=== PATIENT | female | born 1935 | race Caucasian/White ===

== ENCOUNTER 2017-06-10 16:58 | Observation (INO) | payer OTHER ==
[2017-06-10] VITALS (14 sets, daily range): BP systolic 96–225; BP diastolic 53–106; PULSE 64–96; RESP 16–18; TEMP 97.6–97.7; O2SAT 93–98
[~2017-06-10] VITALS: Ht 154.9 cm; Wt 62.3 kg
[~2017-06-10 16:58] MED LIST: LEVO25TA4 PO; NAPR250T PO; ORPH100T PO; SIMV20TA PO
[2017-06-10] MEDS ORDERED: LORazepam 2 MG/ML VIAL IV PUSH ONE ×2 (17:30)
[2017-06-10] MEDS ORDERED: ASPIRIN 325 MG TAB PO ONE ×2 (17:30)
--- NOTE | 2017-06-10 17:30 | PD ---
HPI Chief Complaint: Chest Pain Time Seen by Provider: 17:08 Travel History International Travel<30 days: No Contact w/Intl Traveler<30days: No History of Present Illness HPI 82yo F with HLD, anxiety, colon CA and hypothyroidism presents to the ED with c/ o tingling in bilateral hands that radiated up her arms and now with chest pain across her chest at about 3pm today. Said it is hard to describe the chest pain but it hurts when you press on it. Associated with some nausea. Denies any fever, cough, sob, vomiting, focal weakness. Denies any history of CVA or NM. Said she has had similar chest pain before but never saw a regulatory compliance coordinator or had a stress test. Denies cig smoking. PFSH Past Medical History Anxiety: Yes Cancer: Yes (COLON CANCER 1986) High Cholesterol: Yes Diminished Hearing: No Thyroid Disease: Yes Triglycerides - High: Yes Dilation and Curettage (D&C): Yes Past Surgical History Abdominal Surgery: Yes (COLON RESCETION) Appendectomy: Yes Tonsillectomy: Yes Social History Alcohol Use: Yes (2-3 [employer]ASS[employer] W[employer] AT [employer]) Tobacco Use: No Substance Use: No Allergies-Medications (Allergen,Severity, Reaction): Coded Allergies: No Known Allergies (Verified Allergy, Unknown, 06/10/17) Reported Meds & Prescriptions Reported Meds & Active Scripts Active Naproxen 250 Mg Tab 250 Mg PO BID Orphenadrine ER 12 HR (Orphenadrine Citrate) 100 Mg Tab 100 Mg PO Q12HR 10 Days Reported Levothyroxine (Levothyroxine Sodium) 25 Mcg Tab Unknown Dose PO DAILY Simvastatin 20 Mg Tab 20 Mg PO DAILY Review of Systems Except as stated in HPI: all other systems reviewed are Neg Physical Exam Narrative GENERAL: 82yo F in mild distress. SKIN: Focused skin assessment warm/dry. HEAD: Atraumatic. Normocephalic. EYES: Pupils equal and round. No scleral icterus. No injection or drainage. ENT: No nasal bleeding or discharge. Mucous membranes pink and moist. NECK: Trachea midline. No JVD. CARDIOVASCULAR: Regular rate and rhythm. No murmur appreciated. RESPIRATORY: No accessory muscle use. Clear to auscultation. Breath sounds equal bilaterally. GASTROINTESTINAL: Abdomen soft, non-tender, nondistended. MUSCULOSKELETAL: No obvious deformities. No clubbing. No cyanosis. No edema. NEUROLOGICAL: Awake and alert. No obvious cranial nerve deficits. Motor grossly within normal limits in all extremities. Normal speech. Sensation intact and equal in both arms and legs. PSYCHIATRIC: Anxious appearing. Data Data Last Documented VS Vital Signs Date Time Temp Pulse Resp B/P (MAP) Pulse Ox O2 Delivery O2 Flow Rate FiO2 06/10/17 18:46 79 18 206/106 (139) 94 Room Air 06/10/17 17:15 97.7 Orders Orders Basic Metabolic Panel (Bmp) (06/10/17 17:20) Complete Blood Count With Diff (06/10/17 17:20) Magnesium (Mg) (06/10/17 17:20) Prothrombin Time / Inr (Pt) (06/10/17 17:20) Act Partial Throm Time (Ptt) (06/10/17 17:20) Troponin I (06/10/17 17:20) Chest, Single Ap (06/10/17 17:20) Ecg Monitoring (06/10/17 17:20) Bilateral Bp Monitoring (06/10/17 17:20) Aspirin (Aspirin) (06/10/17 17:30) Ct Brain W/O Iv Contrast(Rout) (06/10/17 ) Lorazepam Inj (Ativan Inj) (06/10/17 17:30) Electrocardiogram (06/10/17 17:10) Nitroglycerin Sl (Nitrostat Sl) (06/10/17 18:45) Potassium Chloride (Kcl) (06/10/17 19:00) Admit Order (Ed Use Only) (06/10/17 18:51) Thyroid Stimulating Hormone (06/10/17 17:20) Labs Laboratory Tests Test 06/10/17 17:20 White Blood Count 8.8 TH/MM3 Red Blood Count 4.43 MIL/MM3 Hemoglobin 12.9 GM/DL Hematocrit 38.3 % Mean Corpuscular Volume 86.5 FL Mean Corpuscular Hemoglobin 29.2 PG Mean Corpuscular Hemoglobin Concent 33.7 % Red Cell Distribution Width 13.0 % Platelet Count 356 TH/MM3 Mean Platelet Volume 7.3 FL Neutrophils (%) (Auto) 64.0 % Lymphocytes (%) (Auto) 26.0 % Monocytes (%) (Auto) 6.3 % Eosinophils (%) (Auto) 2.7 % Basophils (%) (Auto) 1.0 % Neutrophils # (Auto) 5.6 TH/MM3 Lymphocytes # (Auto) 2.3 TH/MM3 Monocytes # (Auto) 0.6 TH/MM3 Eosinophils # (Auto) 0.2 TH/MM3 Basophils # (Auto) 0.1 TH/MM3 CBC Comment DIFF FINAL Differential Comment Prothrombin Time 10.0 SEC Prothromb Time International Ratio 0.9 RATIO Activated Partial Thromboplast Time 25.0 SEC Blood Urea Nitrogen 19 MG/DL Creatinine 0.88 MG/DL Random Glucose 125 MG/DL Calcium Level 8.3 MG/DL Magnesium Level 2.1 MG/DL Sodium Level 139 MEQ/L Potassium Level 3.3 MEQ/L Chloride Level 105 MEQ/L Carbon Dioxide Level 21.4 MEQ/L Anion Gap 13 MEQ/L Estimat Glomerular Filtration Rate 62 ML/MIN Troponin I 0.02 NG/ML Thyroid Stimulating Hormone 3rd Gen 2.350 uIU/ML MDM Medical Decision Making Medical Screen Exam Complete: Yes Emergency Medical Condition: Yes Interpretation(s) EKG: NSR 91bpm. ST depression II, III, aVF, V3-V6. LVH. Differential Diagnosis Anxiety vs. ACS vs. CVA Narrative Course 82yo F with bilateral upper extremity tingling and atypical chest pain today. Pt keeps saying it's numb but feels equal sensation on my exam. Said it is really more tingling. No perioral numbness. Pt appears very anxious so will give ativan. There are ST depressions that are concerning on EKG. Could be from LVH but no prior to compare. Labs reviewed, no leukocytosis. H/H normal. Mild hypokalemia at 3.3, replaced orally. Troponin negative. Creatinine normal. CXR showed cardiomegaly. No acute disease. CT brain negative. Pt reevaluated after aspirin and ativan. Said tingling has improved. Blood pressure is very elevated and pt has no history of elevated blood pressure. Pt still with chest pain when you press on it. Sublingual nitro ordered for chest pain and elevated blood pressure. Discussed with Dr. Alva and accepted to her service for chest pain. Informed by nurse that her blood pressure dropped to systolic 90s after 1 sublingual nitro. Will do CTA to r/o dissection. Sign out to Dr. Brown to follow up. Diagnosis Primary Impression: Chest pain Qualified Codes: R07.9 - Chest pain, unspecified Admitting Information Admitting Physician Requests: Observation Opal Valdovinos DO Jun 10, 2017 17:30
[2017-06-10 17:48] LABS: AUTOMATED NEUTROPHIL # 5.6 TH/MM3 (1.8-7.7); BASOPHIL # 0.1 TH/MM3 (0-0.2); EOSINOPHIL # 0.2 TH/MM3 (0-0.4); EOSINOPHIL % 2.7 % (0.0-4.0); HEMATOCRIT 38.3 % (35.0-46.0); HEMOGLOBIN 12.9 GM/DL (11.6-15.3); LYMPHOCYTE # 2.3 TH/MM3 (1.0-4.8); MEAN CELL VOLUME 86.5 FL (80.0-100.0); MEAN CORPUSCULAR HEMOGLOBIN 29.2 PG (27.0-34.0); MEAN CORPUSCULAR HGB CONC 33.7 % (32.0-36.0); MEAN PLATELET VOLUME 7.3 FL (7.0-11.0); MONO % 6.3 % (0.0-8.0); MONOCYTE # 0.6 TH/MM3 (0-0.9); PLATELET COUNT 356 TH/MM3 (150-450); RED BLOOD COUNT 4.43 MIL/MM3 (4.00-5.30); WHITE BLOOD COUNT 8.8 TH/MM3 (4.0-11.0)
[2017-06-10 17:50] LABS: BICARBONATE 21.4 MEQ/L (21.0-32.0); CALCIUM 8.3 MG/DL (8.5-10.1); MAGNESIUM 2.1 MG/DL (1.5-2.5)
[2017-06-10 17:51] LABS: INTERNATIONAL NORMALIZED RATIO 0.9 RATIO
[2017-06-10 17:54] LABS: CREATININE 0.88 MG/DL (0.50-1.00)
--- NOTE | 2017-06-10 17:58 | RADRPT ---
EXAM DATE/TIME: 06/10/2017 17:50 [facility] COMPARISON: No previous studies available for comparison. INDICATIONS : Numbness in arms. MEDICAL HISTORY : None. SURGICAL HISTORY : None. ENCOUNTER: Initial ACUITY: 1 day PAIN SCORE: 0/10 LOCATION: Bilateral chest FINDINGS: The cardiac silhouette is enlarged in transverse diameter. The lungs are free of acute parenchymal op acity. No effusions are identified. The aortic knob is prominent with tortuosity of the descending th oracic aorta. CONCLUSION: 1. Cardiomegaly. No acute pulmonary disease. Irvin Saba MD on June 10, 2017 at 17:56 Board Certified Radiologist. This report was verified electronically.
[2017-06-10 17:59] LABS: TROPONIN I 0.02 NG/ML (0.02-0.05)
--- NOTE | 2017-06-10 18:21 | RADRPT ---
EXAM DATE/TIME: 06/10/2017 18:07 [facility] COMPARISON: No previous studies available for comparison. INDICATIONS : Bilateral upper extremity tingling this afternoon. RADIATION DOSE: 61.24 CTDIvol (mGy) MEDICAL HISTORY : Carcinoma, colon. SURGICAL HISTORY : Tonsillectomy. Colon resection.Appendectomy. ENCOUNTER: Initial ACUITY: 1 day PAIN SCALE: 0/10 LOCATION: cranial TECHNIQUE: Multiple contiguous axial images were obtained of the head. Using automated exposure control and adj ustment of the mA and/or kV according to patient size, radiation dose was kept as low as reasonably a chievable to obtain optimal diagnostic quality images. DICOM format image data is available electro nically for review and comparison. FINDINGS: CEREBRUM: The ventricles are normal for age. No evidence of midline shift, mass lesion, hemorrhage or acute in farction. No extra-axial fluid collections are seen. POSTERIOR FOSSA: The cerebellum and brainstem are intact. The 4th ventricle is midline. The cerebellopontine angle i s unremarkable. EXTRACRANIAL: The visualized portion of the orbits is intact. SKULL: The calvaria is intact. No evidence of skull fracture. CONCLUSION: Negative noncontrast CT brain. Mario Mahmood MD on June 10, 2017 at 18:19 Board Certified Radiologist. This report was verified electronically.
[2017-06-10] MEDS: NITROGLYCERIN 0.4 MG SL 25 TABS/BTL SL SCH ×6 (18:50→18:55)
[2017-06-10] MEDS ORDERED: IOHEXOL 350 MG/ML 100 ML BTL (for Cath Lab) OTHER ONE ×2 (18:52)
[2017-06-10] MEDS ORDERED: POTASSIUM CHLORIDE 20 MEQ CONTROLLED RELEASE TAB PO ONE ×2 (19:00)
[2017-06-10] MEDS ORDERED: NITROGLYCERIN 0.4 MG SL 25 TABS/BTL SL PRN ×2 (19:00)
[2017-06-10] MEDS ORDERED: SODIUM CHLORIDE 0.9% FLUSH 10 ML FLUSH IV FLUSH PRN ×2 (19:00)
[2017-06-10] MEDS ORDERED: POTASSIUM CHLORIDE 10 MEQ CONTROLLED RELEASE TAB PO ONE ×2 (19:00)
[2017-06-10] MEDS ORDERED: IOHEXOL 350 MG/ML 10 ML VIAL (for RAD DIAG) IVCONTRAST ONE ×2 (20:12)
--- NOTE | 2017-06-10 20:31 | RADRPT ---
EXAM DATE/TIME: 06/10/2017 19:33 [facility] COMPARISON: CHEST SINGLE AP, June 10, 2017, 17:50. INDICATIONS : Chest pain. Evaluate for aortic dissection. IV CONTRAST: 100 cc Omnipaque 350 (iohexol) IV RADIATION DOSE: 16.05 CTDIvol (mGy) MEDICAL HISTORY : Cardiovascular disease. Carcinoma, colon. SURGICAL HISTORY : Colon resection. Appendectomy. ENCOUNTER: Initial ACUITY: 1 day PAIN SCALE: 2/10 LOCATION: chest TECHNIQUE: Volumetric scanning was performed using a multi-row detector CT scanner. The data was post processed with a variety of visualization algorithms including full volume maximum intensity projection, multi -planar sliding thin slab reformation, curved planar reformation, and surface rendering techniques. Using automated exposure control and adjustment of the mA and/or kV according to patient size, radiat ion dose was kept as low as reasonably achievable to obtain optimal diagnostic quality images. DICOM format image data is available electronically for review and comparison. FINDINGS: LUNGS: There is no consolidation or pneumothorax. No concerning pulmonary nodule is visualized. No pleural fluid is present. MEDIASTINUM: No abnormally enlarged lymph nodes by CT criteria. No axillary or hilar abnormalities are identified. There are multiple small periaortic lymph nodes which appear reactive. Coronary calcifications are p resent. ABDOMEN: There is a small hiatal hernia. Postoperative changes are noted in the right side of the colon with a nastomotic neftali. There are scattered diverticuli. The liver and spleen are free of focal defects. The gallbladder and pancreas demonstrate no abnormality. The adrenal glands are normal. The kidneys d emonstrate no evidence of solid renal mass or hydronephrosis. No free fluid or abdominal masses are i dentified. No para-aortic adenopathy is seen. PELVIS: No evidence of free fluid. No abnormally enlarged inguinal or retroperitoneal lymph nodes are present . The bladder is unremarkable. The uterus is prominent with a 4 cm mass along the left side of the ut erus. THORACIC AORTA: The thoracic aortic root is normal with normal branching of the great vessels. There is no evidence of aneurysm or dissection. After splenic changes noted with plaque and calcifications. ABDOMINAL AORTA: The aorta is normal in caliber without aneurysm or dissection. The renal arteries are patent bilater ally. The proximal celiac and superior mesenteric arteries are patent and normal in diameter. Diffus e atherosclerotic changes are noted with plaque and calcification. PELVIC VESSELS: The internal iliac and external iliac vessels are patent without aneurysm or stenosis. CONCLUSION: 1. No aortic dissection. 2. Atherosclerotic change with calcification and plaque. 3. Small hiatal hernia 4. Prominent uterus with left-sided mass measuring up to 4 cm. This is nonspecific. Carlos Patiño MD on June 10, 2017 at 20:24 Board Certified Radiologist. This report was verified electronically.
--- NOTE | 2017-06-10 21:05 | EKG ---
Date Performed: 06/10/2017 Time Performed: 17:10:03 PTAGE: 82 years EKG: Sinus rhythm LEFT VENTRICULAR HYPERTROPHY AND ST-T CHANGE ABNORMAL ECG PREVIOUS TRACING : 04/21/1996 14.09 Compared to the previous tracing ST-T changes present DOCTOR: Khoi Babb Interpretating Date/Time 06/10/2017 21:04:04
[2017-06-10] MEDS: ENALAPRIL MALEATE 5 MG TAB PO SCH ×2 (21:22)
[2017-06-10] MEDS: SODIUM CHLORIDE 0.9% FLUSH 10 ML FLUSH IV FLUSH SCH ×2 (21:23)
[2017-06-10] MEDS: CARVEDILOL 3.125 MG TAB PO SCH ×2 (21:23)
[2017-06-10 21:39] LABS: TROPONIN I 1.5 NG/ML (0.02-0.05)
[2017-06-10] MEDS ORDERED: NITROGLYCERIN 2% OINT 1 GM PACKET TOPICAL ONE ×2 (22:00)
[2017-06-10] MEDS ORDERED: HEPARIN SODIUM - IV 10,000 UNITS/10 ML VIAL IV PUSH ONE ×2 (22:00)
[2017-06-10] MEDS ORDERED: HEPARIN-D5W 25,000 U/250 ML 250 ML IV PRN ×2 (22:00)
[2017-06-10 22:18] LABS: CHOLESTEROL/ HDL RATIO 11.19 RATIO; HDL CHOLESTEROL 11.7 MG/DL (40.0-60.0)
[2017-06-10] MEDS ORDERED: NITROGLYCERIN-D5W 50 MG/250 ML 250 ML IV PRN ×2 (23:15)
[2017-06-11] VITALS (28 sets, daily range): BP systolic 103–168; BP diastolic 52–74; PULSE 62–92; RESP 16–20; TEMP 97.5–98.4; O2SAT 93–97
--- NOTE | 2017-06-11 00:56 | PD ---
Physical Exam Date Seen by Provider: Jun 11, 2017 Time Seen by Provider: 23:00 Narrative GENERAL: Well-developed well-nourished female in no acute distress no respiratory distress CARDIOVASCULAR: Regular rate and rhythm without murmurs, gallops, or rubs. RESPIRATORY: Breath sounds equal bilaterally. No accessory muscle use. MUSCULOSKELETAL: No cyanosis, or edema. Radial dorsalis pedis pulses 2+ to palpation Data Data Last Documented VS Vital Signs Date Time Temp Pulse Resp B/P (MAP) Pulse Ox O2 Delivery O2 Flow Rate FiO2 06/10/17 18:46 79 18 206/106 (139) 94 Room Air 06/10/17 17:15 97.7 Orders Orders Basic Metabolic Panel (Bmp) (06/10/17 17:20) Complete Blood Count With Diff (06/10/17 17:20) Magnesium (Mg) (06/10/17 17:20) Prothrombin Time / Inr (Pt) (06/10/17 17:20) Act Partial Throm Time (Ptt) (06/10/17 17:20) Troponin I (06/10/17 17:20) Chest, Single Ap (06/10/17 17:20) Ecg Monitoring (06/10/17 17:20) Bilateral Bp Monitoring (06/10/17 17:20) Aspirin (Aspirin) (06/10/17 17:30) Ct Brain W/O Iv Contrast(Rout) (06/10/17 ) Lorazepam Inj (Ativan Inj) (06/10/17 17:30) Electrocardiogram (06/10/17 17:10) Nitroglycerin Sl (Nitrostat Sl) (06/10/17 18:45) Potassium Chloride (Kcl) (06/10/17 19:00) Admit Order (Ed Use Only) (06/10/17 18:51) Thyroid Stimulating Hormone (06/10/17 17:20) Labs Laboratory Tests Test 06/10/17 17:20 White Blood Count 8.8 TH/MM3 Red Blood Count 4.43 MIL/MM3 Hemoglobin 12.9 GM/DL Hematocrit 38.3 % Mean Corpuscular Volume 86.5 FL Mean Corpuscular Hemoglobin 29.2 PG Mean Corpuscular Hemoglobin Concent 33.7 % Red Cell Distribution Width 13.0 % Platelet Count 356 TH/MM3 Mean Platelet Volume 7.3 FL Neutrophils (%) (Auto) 64.0 % Lymphocytes (%) (Auto) 26.0 % Monocytes (%) (Auto) 6.3 % Eosinophils (%) (Auto) 2.7 % Basophils (%) (Auto) 1.0 % Neutrophils # (Auto) 5.6 TH/MM3 Lymphocytes # (Auto) 2.3 TH/MM3 Monocytes # (Auto) 0.6 TH/MM3 Eosinophils # (Auto) 0.2 TH/MM3 Basophils # (Auto) 0.1 TH/MM3 CBC Comment DIFF FINAL Differential Comment Prothrombin Time 10.0 SEC Prothromb Time International Ratio 0.9 RATIO Activated Partial Thromboplast Time 25.0 SEC Blood Urea Nitrogen 19 MG/DL Creatinine 0.88 MG/DL Random Glucose 125 MG/DL Calcium Level 8.3 MG/DL Magnesium Level 2.1 MG/DL Sodium Level 139 MEQ/L Potassium Level 3.3 MEQ/L Chloride Level 105 MEQ/L Carbon Dioxide Level 21.4 MEQ/L Anion Gap 13 MEQ/L Estimat Glomerular Filtration Rate 62 ML/MIN Troponin I 0.02 NG/ML Thyroid Stimulating Hormone 3rd Gen 2.350 uIU/ML [facility] Medical Record Reviewed: Yes Supervised Visit with CURTIS: No Differential Diagnosis please refer to Dr Valdovinos's dictation Narrative Course Asked to see patient as #2 tropnini I elevated at 1.50; patient hypertensive notes discomfort 3/10 in intensity across chest deies prior reported complaint of bilaterla upper extremity tingling or bilateral axillary discomfort; patient has receive coreg and vasotec for BP management --admitting MD has been called with plan to start heparin and nitropaste --in view of persistent HTN and c/o 3/ 10 "discomfort" per patient recommend change to nitroglycerin infusion and call placed to cardiology; patient bed has been changed with plan to admit now to [facility] to [facility] or [facility]. Physician Communication Physician Communication discussed with Dr Rodas; discussed with Dr Burnett Diagnosis Primary Impression: Chest pain Qualified Codes: R07.9 - Chest pain, unspecified Additional Impressions: NSTEMI (non-ST elevated myocardial infarction) Uncontrolled hypertension Rupa Brown MD Jun 11, 2017 00:56
[2017-06-11 02:33] LABS: TROPONIN I 5.12 NG/ML (0.02-0.05)
[2017-06-11] MEDS ORDERED: HEPARIN SODIUM - IV 10,000 UNITS/10 ML VIAL IV PUSH PRN ×4 (04:00)
[2017-06-11 04:30] LABS: BICARBONATE 21.7 MEQ/L (21.0-32.0); CALCIUM 9.2 MG/DL (8.5-10.1); CREATININE 0.79 MG/DL (0.50-1.00)
--- NOTE | 2017-06-11 04:42 | HHI.HP ---
[facility] Primary Care Physician Otoniel Downey MD Admission Diagnosis Chest pain Diagnoses: (1) Chest pain Chief Complaint: Chest pain and bilateral hand paresthesias Travel History International Travel<30 Days: No Contact w/Intl Traveler <30 Da: No Traveled to Known Affected Are: No History of Present Illness Written by Daisy Ramirez, acting as scribe for Dr. Rodas on 06/11/17 at 04:42. The patient reports chest pain not worse with deep breath accompanied by bilateral axillary pain radiating pins and needle sensation down both arms since about 4 p.m. on 06/10/17. The patient states that she had chest discomfort that is reproducible when palpating chest; currently denies chest pain. Denies nausea/vomiting or shortness of breath. Denies any weakness in arms. The patient reports feeling better since admission, arms back to normal. Chest pain only with pressing on her chest. Review of Systems Except as stated in HPI: all other systems reviewed are Neg Past Family Social History Past Medical History Thyroid disease Hyperlipidemia Anxiety Past Surgical History Colon cancer s/p resection Appendectomy Tonsillectomy Reported Medications Reported Meds & Active Scripts Active Naproxen 250 Mg Tab 250 Mg PO BID Orphenadrine ER 12 HR (Orphenadrine Citrate) 100 Mg Tab 100 Mg PO Q12HR 10 Days Reported Levothyroxine (Levothyroxine Sodium) 25 Mcg Tab Unknown Dose PO DAILY Simvastatin 20 Mg Tab 20 Mg PO DAILY . Allergies: Coded Allergies: No Known Allergies (Verified Allergy, Unknown, 06/10/17) Active Ordered Medications Current Medications Aspirin (Aspirin) 325 mg ONCE ONCE PO Last administered on 06/10/17 17:39; Start 06/10/17 at 17:30; Stop 06/10/17 at 17:31; Status DC Lorazepam (Ativan Inj) 1 mg ONCE ONCE IV PUSH Last administered on 06/10/17 17:40; Start 06/10/17 at 17:30; Stop 06/10/17 at 17:31; Status DC Nitroglycerin (Nitrostat Sl) 0.4 mg Q5M SL Last administered on 06/10/17 18: 53; Start 06/10/17 at 18:45; Stop 06/10/17 at 18:56; Status DC Potassium Chloride (KCl) 20 meq ONCE ONCE PO Last administered on 06/10/17 18:53; Start 06/10/17 at 19:00; Stop 06/10/17 at 19:01; Status DC Sodium Chloride (NS Flush) 2 ml UNSCH PRN IV FLUSH FLUSH AFTER USING IV ACCESS ; Start 06/10/17 at 19:00 Sodium Chloride (NS Flush) 2 ml BID IV FLUSH Last administered on 06/10/17 21 :23; Start 06/10/17 at 21:00 Enalapril Maleate (Vasotec) 5 mg BID PO Last administered on 06/10/17 21:22; Start 06/10/17 at 21:00 Aspirin (Aspirin) 325 mg DAILY PO ; Start 06/12/17 at 09:00 Nitroglycerin (Nitrostat Sl) 0.4 mg Q5M PRN SL X 3 doses for chest pain; Start 06/10/17 at 19:00 Potassium Chloride (KCl) 30 meq ONCE ONCE PO ; Start 06/10/17 at 19:00; Stop 06/10/17 at 20:21; Status DC Iohexol (Omnipaque 350 Inj) 100 ml STK-MED ONCE IVCONTRAST Last administered on 06/10/17 20:12; Start 06/10/17 at 20:12; Stop 06/10/17 at 20:13; Status DC Carvedilol (Coreg) 3.125 mg Q12HR PO Last administered on 06/10/17 21:23; Start 06/10/17 at 21:15 Nitroglycerin (Nitroglycerin 2% Oint) 0.5 inch ONCE ONCE TOPICAL Last administered on 06/10/17 22:15; Start 06/10/17 at 22:00; Stop 06/10/17 at 22 :06; Status DC Heparin Sodium (Porcine) (Heparin Inj) 2,000 units ONCE ONCE IV PUSH Last administered on 06/10/17 22:15; Start 06/10/17 at 22:00; Stop 06/10/17 at 22 :04; Status DC Heparin Sodium (Porcine) (Heparin Inj) 5,000 units UNSCH PRN IV PUSH APTT LESS THAN 25; Start 06/11/17 at 04:00 Heparin Sodium (Porcine) (Heparin Inj) 2,500 units UNSCH PRN IV PUSH APTT 25 TO 39; Start 06/11/17 at 04:00 Heparin Sodium/ Dextrose 250 ml @ 7 mls/hr TITRATE PRN IV Coagulation Management Last administered on 06/10/17 22:16; Start 06/10/17 at 22:00 Pravastatin Sodium (Pravachol) 40 mg DAILY PO ; Start 06/11/17 at 09:00 Nitroglycerin/ Dextrose 250 ml @ 1.5 mls/hr TITRATE PRN IV Chest pain relief Last administered on 06/10/17 23:30; Start 06/10/17 at 23:15 . Family History mother and father with heart disease . Social History quit smoking 50 years ago 3 glasses of wine daily illicit drugs denies . Physical Exam Vital Signs Vital Signs Date Time Temp Pulse Resp B/P (MAP) Pulse Ox O2 Delivery O2 Flow Rate FiO2 06/11/17 04:00 82 06/11/17 03:00 84 06/11/17 03:00 97.9 84 16 103/55 (71) 93 06/11/17 02:00 71 06/11/17 01:30 72 06/11/17 01:30 97.5 72 16 156/65 (95) 96 06/11/17 00:37 69 16 139/60 (86) 96 Room Air 06/11/17 00:31 72 16 137/62 (87) 94 Room Air 06/11/17 00:24 70 16 131/66 (87) 96 Room Air 06/11/17 00:17 77 16 142/69 (93) 94 Room Air 06/11/17 00:12 84 16 154/67 (96) 95 Room Air 06/11/17 00:06 68 16 142/52 (82) 96 Room Air 06/11/17 00:01 77 16 143/67 (92) 96 Room Air 06/10/17 23:56 81 16 157/74 (101) 96 Room Air 06/10/17 23:52 73 16 187/78 (114) 94 Room Air 06/10/17 23:42 16 06/10/17 23:41 71 16 159/66 (97) 93 Room Air 06/10/17 23:37 71 16 150/74 (99) 95 Room Air 06/10/17 23:30 69 164/70 06/10/17 23:21 64 16 164/70 (101) 95 Room Air 06/10/17 22:54 78 16 179/76 (110) 96 Room Air 06/10/17 22:22 97.6 87 16 204/94 (130) 97 Room Air 06/10/17 21:50 72 18 191/83 (119) 97 Room Air 06/10/17 20:55 76 16 190/80 (116) 93 Room Air 06/10/17 19:47 87 18 161/82 (108) 94 Room Air 06/10/17 19:18 85 18 96/53 (67) 94 Room Air 06/10/17 18:59 18 06/10/17 18:46 79 18 206/106 (139) 94 Room Air 06/10/17 17:57 95 Room Air 06/10/17 17:45 213/88 (129) 206/94 (131) 06/10/17 17:15 97.7 96 16 225/105 (145) 98 Physical Exam GENERAL: This is a well-nourished, well-developed patient, in no apparent distress. SKIN: No rashes. Cool and dry. HEAD: Atraumatic. Normocephalic. EYES: No scleral icterus. No injection or drainage. ENT: Nose without bleeding, purulent drainage. NECK: Trachea midline. No JVD or lymphadenopathy. CARDIOVASCULAR: Regular rate and rhythm without murmurs, gallops, or rubs. Chest pain is reproducible when palpating central chest wall. RESPIRATORY: Clear to auscultation. Breath sounds equal bilaterally. No wheezes , rales, or rhonchi. GASTROINTESTINAL: Abdomen soft, non-tender, nondistended. No guarding. MUSCULOSKELETAL: Extremities without clubbing, cyanosis, or edema. No calf tenderness. NEUROLOGICAL: Awake and alert. Motor and sensory grossly within normal limits. Normal speech. . Laboratory Laboratory Tests Test 06/10/17 17:20 06/10/17 20:48 06/11/17 02:03 06/11/17 03:56 White Blood Count 8.8 Red Blood Count 4.43 Hemoglobin 12.9 Hematocrit 38.3 Mean Corpuscular Volume 86.5 Mean Corpuscular Hemoglobin 29.2 Mean Corpuscular Hemoglobin Concent 33.7 Red Cell Distribution Width 13.0 Platelet Count 356 Mean Platelet Volume 7.3 Neutrophils (%) (Auto) 64.0 Lymphocytes (%) (Auto) 26.0 Monocytes (%) (Auto) 6.3 Eosinophils (%) (Auto) 2.7 Basophils (%) (Auto) 1.0 Neutrophils # (Auto) 5.6 Lymphocytes # (Auto) 2.3 Monocytes # (Auto) 0.6 Eosinophils # (Auto) 0.2 Basophils # (Auto) 0.1 CBC Comment DIFF FINAL Differential Comment Prothrombin Time 10.0 Prothromb Time International Ratio 0.9 Activated Partial Thromboplast Time 25.0 38.2 Blood Urea Nitrogen 19 15 Creatinine 0.88 0.79 Random Glucose 125 110 Calcium Level 8.3 9.2 Magnesium Level 2.1 Sodium Level 139 138 Potassium Level 3.3 3.9 Chloride Level 105 106 Carbon Dioxide Level 21.4 21.7 Anion Gap 13 10 Estimat Glomerular Filtration Rate 62 70 Troponin I 0.02 1.50 5.12 Thyroid Stimulating Hormone 3rd Gen 2.350 Total Creatine Kinase 164 352 Triglycerides Level 239 Cholesterol Level 131 LDL Cholesterol 72 HDL Cholesterol 11.7 Cholesterol/HDL Ratio 11.19 Creatine Kinase MB 39.0 Creatine Kinase MB % 11.1 Result Diagram: 06/10/17171906/11/17 0356 Imaging Last Impressions Aorta CTA 06/10/17 1907 Signed Impressions: Service Date/Time: Saturday, June 10, 2017 19:33 - CONCLUSION: 1. No aortic dissection. 2. Atherosclerotic change with calcification and plaque. 3. Small hiatal hernia 4. Prominent uterus with left-sided mass measuring up to 4 cm. This is nonspecific. Carlos Patiño MD Chest X-Ray 06/10/170 Signed Impressions: Service Date/Time: Saturday, June 10, 2017 17:50 - CONCLUSION: 1. Cardiomegaly. No acute pulmonary disease. Irvin Saba MD Head CT 06/10/17 0000 Signed Impressions: Service Date/Time: Saturday, June 10, 2017 18:07 - CONCLUSION: Negative noncontrast CT brain. Mario Mahmood MD . Caprini VTE Risk Assessment Caprini VTE Risk Assessment: Mod/High Risk (score >= 2) Caprini Risk Assessment Model Point Value = 1 Point Value = 2 Point Value = 3 Point Value = 5 Age 41-60 Minor surgery BMI > 25 kg/m2 Swollen legs Varicose veins or History of unexplained or recurrent spontaneous Oral contraceptives or hormone replacement Sepsis (< 1 month) Serious lung disease, including pneumonia (< 1 month) Abnormal pulmonary function Acute myocardial infarction Congestive heart failure (< 1 month) History of inflammatory bowel disease Medical patient at bed rest Age 61-74 Arthroscopic surgery Major open surgery (> 45 min) Laparoscopic surgery (> 45 min) Malignancy Confined to bed (> 72 hours) Immobilizing plaster cast Central venous access Age >= 75 History of VTE Family history of VTE Factor V Leiden Prothrombin [id number] Lupus anticoagulant Anticardiolipin antibodies Elevated serum homocysteine Heparin-induced thrombocytopenia Other congenital or acquired thrombophilia Stroke (< 1 month) Elective arthroplasty Hip, pelvis, or leg fracture Acute spinal cord injury (< 1 month) Prophylaxis Regimen Total Risk Factor Score Risk Level Prophylaxis Regimen 0-1 Low Early ambulation 2 Moderate Order ONE of the following: *Sequential Compression Device (SCD) *Heparin 5000 units SQ BID 3-4 Higher Order ONE of the following medications: *Heparin 5000 units SQ TID *Enoxaparin/Lovenox 40 mg SQ daily (WT < 150 kg, CrCl > 30 mL/min) *Enoxaparin/Lovenox 30 mg SQ daily (WT < 150 kg, CrCl > 10-29 mL/min) *Enoxaparin/Lovenox 30 mg SQ BID (WT < 150 kg, CrCl > 30 mL/min) AND/OR *Sequential Compression Device (SCD) 5 or more Highest Order ONE of the following medications: *Heparin 5000 units SQ TID (Preferred with Epidurals) *Enoxaparin/Lovenox 40 mg SQ daily (WT < 150 kg, CrCl > 30 mL/min) *Enoxaparin/Lovenox 30 mg SQ daily (WT < 150 kg, CrCl > 10-29 mL/min) *Enoxaparin/Lovenox 30 mg SQ BID (WT < 150 kg, CrCl > 30 mL/min) AND *Sequential Compression Device (SCD) Assessment and Plan Problem List: (1) NSTEMI (non-ST elevated myocardial infarction) ICD Code: I21.4 - Non-ST elevation (NSTEMI) myocardial infarction Status: Acute (2) Chest pain ICD Code: R07.9 - Chest pain, unspecified Status: Acute Assessment and Plan 82 y/o female who presented to the ED after experiencing chest pain and bilateral hand paresthesias. NSTEMI Atypical chest pain - Heparin drip for anticoagulation - Nitroglycerin drip for chest pain - Troponin 1 repeat elevated at 1.50 and third level 5.12; fourth level pending at 0640 - Cardiology has been consulted - ER physician spoke with Dr. Burnett regarding patient per his documentation - Diet NPO - Closely monitor I&O qshift - continuous cardiac telemetry to monitor for cardiac arrhythmias - monitor vital signs q4h Prominent uterus with left sided mass measuring up to 4 cm seen on Aorta CTA as an incidental finding - patient will need follow up as an outpatient DVT prophylaxis - currently on a heparin drip Discussed Condition With ER physician, RN, and patient This note was transcribed by pavan Ramirez. I, Dr. Donal Rodas personally performed the history, physical exam, and medical decision making; and confirmed the accuracy of the information in the transcribed note. Authenticated by Dr. Donal Rodas on 06/11/17 at 07:18. Problem Qualifiers (1) Chest pain: Qualified Codes: R07.9 - Chest pain, unspecified Daisy Ramirez Jun 11, 2017 04:42 Donal Rodas MD Jun 11, 2017 07:18
[2017-06-11] MEDS: SODIUM CHLORIDE 0.9% FLUSH 10 ML FLUSH IV FLUSH SCH ×4 (09:00→21:00)
[2017-06-11] MEDS: ENALAPRIL MALEATE 5 MG TAB PO SCH ×4 (09:00→20:49)
[2017-06-11 09:33] LABS: TROPONIN I 10.2 NG/ML (0.02-0.05)
[2017-06-11] MEDS: CARVEDILOL 3.125 MG TAB PO SCH ×4 (09:38→20:49)
[2017-06-11] MEDS: PRAVASTATIN SOD 40 MG TAB PO SCH ×2 (09:38)
--- NOTE | 2017-06-11 09:44 | MB ---
cc: BHARATI SCOTT M.D. DATE OF CONSULTATION: 06/11/2017 REASON FOR CONSULTATION Abnormal cardiac enzymes. HISTORY OF PRESENT ILLNESS The patient is an 82-year-old white female with a history of hyperlipidemia, colon cancer, hypothyroidism, who was in her usual state of health up until lunchtime yesterday when she began to experience bilateral hand tingling. Shortly thereafter she developed a discomfort in her bilateral axillary regions possibly associated with chest "soreness," although she states the discomforts would worsen when she would press on these areas. There was no associated shortness of breath, nausea or diaphoresis. She believes the symptoms lasted at least 3 hours. The patient has noted occasional chest "soreness" in the past, although of much less intensity and duration. This morning she states she has no chest or arm discomfort. The patient also denies pleurisy, dizziness, syncope, near-syncope, palpitations, pedal edema, paroxysmal nocturnal dyspnea. For the most part she is very active. PAST MEDICAL HISTORY 1. Hyperlipidemia. 2. Colon cancer status post resection 1986. 3. Hypothyroidism. PAST SURGICAL HISTORY 1. Appendectomy. 2. Tonsillectomy. 3. Partial colon resection 1986. MEDICATIONS Her cardiac medications at home: Simvastatin 20 mg q.h.s. ALLERGIES No known drug allergies. FAMILY HISTORY Noncontributory. SOCIAL HISTORY The patient quit smoking 30 years ago. She drinks occasional alcohol. REVIEW OF SYSTEMS As in the history of present illness, otherwise negative or noncontributory. She also denies headache, visual changes, abdominal pain, melena, dyspepsia, bright red blood per rectum. PHYSICAL EXAMINATION VITAL SIGNS: On physical examination her blood pressure is 122/60 with a pulse of 70, respirations 18. GENERAL: In general she is a well-developed, well-nourished white female in no acute distress. HEENT/NECK: Jugular venous pressure is normal. Carotid pulses are 2+ bilaterally and without bruits. CHEST: Examination of the chest reveals clear lung jones. CARDIAC: On cardiac examination she has a regular rhythm and rate without S3, S4, or murmur. ABDOMEN: On abdominal examination she has a soft, nontender abdomen. Bowel sounds are present. There is no definite hepatosplenomegaly. EXTREMITIES: Examination of the extremities reveals no clubbing, cyanosis or edema. Peripheral pulses are normal throughout. LABORATORY Laboratory data includes normal CBC, BUN 15, creatinine 0.79, potassium 3.9, CK 352 with 11.1% MB fraction, troponin 5.12, total cholesterol 131, LDL 72, HDL 12, triglycerides 239. IMAGING Chest x-ray shows no acute disease. EKG EKG from 06/10/2017 at 8:45 p.m. shows normal sinus rhythm, inferior and lateral ST and T-wave abnormalities, consider ischemia. IMPRESSION [id number] myocardial infarction in this 82-year-old white female with a history of hyperlipidemia, colon cancer, hypothyroidism. At this time she is symptom-free. Cardiac enzymes are clearly consistent with acute myocardial infarction. She also has dynamic inferior and lateral ST and T-wave changes on EKGs. Because of her abnormal cardiac enzymes and the instability of her symptoms she has been recommended cardiac catheterization with possible percutaneous coronary intervention. The nature of these procedures and potential risks including but not limited to , myocardial infarction, stroke, arrhythmia, bleeding, infection, renal failure, have been outlined to the patient. She agrees to proceed. RECOMMENDATIONS 1. Continue the beta-dianna, aspirin, JAYCEE inhibitor, statin, heparin drip started here in the hospital. 2. Cardiac catheterization today. MD DAISY Lezama/YUE /9:27 AM /9:37 AM VESTA
[2017-06-11] MEDS ORDERED: SODIUM CHLOR 0.9% 1000 ML INJ 1,000 ML IV SCH ×4 (09:50→12:45)
[2017-06-11] MEDS ORDERED: diphenhydrAMINE HCL 50 MG CAP PO SCH ×2 (10:00)
[2017-06-11] MEDS ORDERED: DIAZEPAM 10 MG TAB PO SCH ×2 (10:00)
[2017-06-11] MEDS ORDERED: ASPIRIN 325 MG TAB PO ONE ×2 (10:45)
[2017-06-11] MEDS ORDERED: MIDAZOLAM HCL 2 MG/2 ML VIAL ONE ×4 (11:04→11:56)
[2017-06-11] MEDS ORDERED: VERAPAMIL HCL 5 MG/2 ML VIAL ONE ×2 (11:04)
[2017-06-11] MEDS ORDERED: HEPARIN-NS/PF INJ 500 ML ONE ×2 (11:04)
[2017-06-11] MEDS ORDERED: HEPARIN SODIUM - IV 10,000 UNITS/10 ML VIAL ONE ×2 (11:05)
[2017-06-11] MEDS ORDERED: MIDAZOLAM HCL 2 MG/2 ML VIAL IV ONE ×4 (11:32→11:59)
[2017-06-11] MEDS ORDERED: VERAPAMIL HCL 5 MG/2 ML VIAL OTHER ONE ×2 (11:36)
[2017-06-11] MEDS ORDERED: HEPARIN SODIUM - IV 2,000 UNITS/2 ML VIAL OTHER ONE ×2 (11:36)
[2017-06-11] MEDS ORDERED: NITROGLYCERIN 1000 MCG/5 ML VIAL OTHER ONE ×2 (11:36)
--- NOTE | 2017-06-11 12:08 | CATHPROC ---
noodls HIS Report Study Information Study Number Admission Scheduled Start Study Start [id number] Jun 10 2017 6:51PM 06/11/2017 Jun 11 2017 10:47AM [facility] Service Cardiac Catheterization Admit Source Facility Department Other [facility] - Director Business Travel Physician and Clinical Staff Initial Saran Silva Clay Artist Chloe Montague,MARLY Clay Artist Gunner Marmolejo,MARLY Recorder Hiwot Infante,RT(R) Scrub Mani Dickson,RT(R) Procedures Performed Procedure Location (Site) Vessel Name Coronary Angiograms LCA Left Coronary Coronary Angiograms RCA Right Coronary L Heart Cath LV Gram-hand inj. LV LV Ventricle Wire insertion Radial (right) Radial Art. Equipment Time Carpet Mechanic Description Size Mfg Part Number Used/Scraped TRANSDUCER, TRUWAVE [id number] 10:48 [employer] Max * Used W/STOCKCOCK *[id number] TIG 4.0 GUIDE CATHETER [id number] 11:29 [employer] FR 6 Used CONVEY *[id number] 534-623T *[id number] 534-642T *[id number] 10:48 [employer] PACK, CCL CUSTOM * Used *[id number] 10:48 [employer] PACER PEN, SKIN DUAL W/ RULER * Used *[id number] BAND, RADIAL COMPRESSION TR [id number] 11:48 [employer] (formerly [employer]) MEDICAL 24CM Used SHORT 24 *[id number] 10:48 [employer] SHEATH, FR6.5 PRELUDE 11CM FR 6.5 038ACT Used *[id number] 10:48 [employer] WIRE, 3MMJ .035 180CM 180CM Used *[id number] 10:48 [employer]AM[employer] MANIFOLD, 4 PORT * Used *[id number] 11:37 [employer] OMNIPAQUE, 350 MG, 150ML 150ML [id number] Used 10:48 [employer] OMNIPAQUE, 350 MG, 150ML 150ML [id number] Used [id number] 10:48 [employer] BL[employer]ET,WARM AIR CCL * Used *[id number] History: Current Medications Medication Dosage/Unit Route Frequency Last Date/Time Taken VASOTEC CARVEDILOL Statins (any) ASA HEPARIN History: Allergies Allergy Reaction No Known Allergies History: Risk Factors Family History of Hypertension Dyslipidemia Previous AR Previous Heart Failure Premature CAD No Yes Yes No No Prior Valve Prior PCI Prior CABG Surgery No No No Cerebrovascular Peripheral Artery Chronic Lung On Dialysis Diabetes Disease Disease Disease No No No No No History: Symptoms/Diagnosis Selection Items Chest pain History: CV Disease Selection Items AR History: Stress Tests Stress or Imaging Studies Performed No History: Other Current Smoker Method Quit Packs a Day Years Used Pack Years Yes Cigarettes 30 Years Ago 1 30 30 Labs Hgb (g/dl) Hct (%) WBC (l/cumm) Platelets (thousands) 11.60-17.00 35.00-51.00 4.00-11.00 150.00-450.00 12.9 38.3 8.8 356 Glucose (mg/dl) BUN (mg/dl) Creatinine (mg/dl) BUN:Creatinine (1:x) 74.00-106.00 7.00-18.00 0.50-1.30 10.00-20.00 110 15 0.8 18.8 Na (meq/l) K (meq/l) 136.00-145.00 3.50-5.10 138 3.9 INR (PTT:PT) 0.90-1.10 0.9 Troponin I (ng/ml) CPK (u/l) CPK-MB (ng/ML) 0.02-0.05 26.00-308.00 0.50-3.60 10.2 458 Not Drawn Medication Medication Total Dose (Bolus/Oral) Medication Total Dosage/Unit 1% XYLOCAINE 20 mL NTG (IC) 300 mcg RADIAL COCKTAIL 5 mL (Bolus) VERSED 3 mg Medications (Bolus/Oral) Medication Time Given Dosage/Unit Administered By Reason VERSED 06/11/2017 11:32:10 AM 1 mg Chloe oMntague 1 mg VERSED given in lab by Chloe Montague, RN in Left Wrist via Peripheral IV. Ordered by Ernie Bang. 1% XYLOCAINE 06/11/2017 11:32:27 AM 20 mL Saran Bang 20 mL 1% XYLOCAINE given in lab by Saran Bang in Right Radial via Subcutaneous. Ntg 200mcg Verapamil 2.5mg Heparin RADIAL COCKTAIL 06/11/2017 11:36:15 AM 5 mL (Bolus) Saran Bang 2500U 5 mL (Bolus) RADIAL COCKTAIL given in lab by Saran Bang via Radial. Using [Solution Name]. Reason: Ntg 200mcg Verapamil 2.5mg Heparin 2500U. NTG (IC) 06/11/2017 11:53:44 AM 200 mcg Saran Bang 200 mcg NTG (IC) given in lab by Saran Bang in Right Radial via Intra-arterial. FOR SHEATH REMOVAL VERSED 06/11/2017 11:57:30 AM 2 mg Chloe Montague 2 mg VERSED given in lab by Chloe Montague, RN via Peripheral IV. NTG (IC) 06/11/2017 11:57:37 AM 100 mcg Mani Dickson 100 mcg NTG (IC) given in lab by Mani Dickson, RT(R) via Intra-arterial. Medication (Drip) Medication Time Given Dosage/Unit Concentration/Unit Diluent (ml) Solution HEPARIN DRIP 06/11/2017 11:00:40 AM 800 units/hr 46982 units 250 NaCl .9 Patient arrived on 800 units/hr HEPARIN DRIP in Left Antecubital via Peripheral IV. Pump/Drip Flow = 8 ml/hr using NaCl .9 [place] [address] units in 250 ml. Ordered by Saran Bang. IV Solutions 06/11/2017 11:15:35 AM 0 mL (IV) NaCl .9 Patient arrived on IV Solutions in Left Wrist via Peripheral IV. Pump/Drip Flow = 100 ml/hr using NaC l .9. Ordered by Saran Bang. NITROGLYCERIN DRIP 06/11/2017 11:16:07 AM 20 mcg/min 50 mg 250 D5W Patient arrived on 20 mcg/min NITROGLYCERIN DRIP in Left Wrist via Peripheral IV. Pump/Drip Flow = 6 ml/hr using D5W with a concentration of 50 mg in 250 ml. Ordered by Saran Bang. Initial Case Assessment Cardiovascular HR Rhythm NIBP Chest Pain 76 reg 114/52 0 Edema Present Skin color Skin None Normal Warm Circulatory - Right Pulses Dorsalis Pedis Femoral Radial 1 3 2 Scale (0,1,2,3,4,d) Circulatory - Left Pulses Dorsalis Pedis Femoral Radial 1 Scale (0,1,2,3,4,d) Circulatory - Lower Extremities Color Lower Right Normal Neurological State Oriented to time-place- Alert Moves all extremities person Respiration - General Respiration Rate SpO2 (%) (B/min) 20 94 Final Case Assessment Cardiovascular HR Rhythm NIBP Chest Pain 77 REG 113/58 0 Edema Present Skin color Skin None Normal Warm Circulatory - Right Pulses Dorsalis Pedis Femoral Radial 1 2 2 Scale (0,1,2,3,4,d) Circulatory - Left Pulses Dorsalis Pedis Femoral Radial 1 Scale (0,1,2,3,4,d) Circulatory - Lower Extremities Color Lower Right Color Lower Left Normal Normal Neurological State Oriented to time-place- Alert Moves all extremities person Respiration - General Respiration Rate SpO2 (%) (B/min) 16 95 Chronological Log Time Study Chronological Log 11:00:00 Patient arrived via Bed. Patient arrived on 800 units/hr HEPARIN DRIP in Left Antecubital via Peripheral IV. Pump/Drip F low = 8 ml/hr using 11:00:40 NaCl .9 [place] [address] units in 250 ml. Ordered by Saran Bang. 11:00:48 A # 20 IV was noted in the Antecubital (left). Grade = 0 11:01:41 Patient Name, D.O.B, / Armband Verified By R.N. 11:02:45 Consent signed by the physician and the patient and verified by the Director Business Travel staff. 11:03:49 Pre-op and post- op instructions given; patient acknowledges understanding of instructions. 11:04:55 Verbal Stimulation=2 Physical Stimulation=2 Airway=2 Respiration=2 TOTAL=8. (0=absent, 1=li mited, 2=present) 11:05:19 heparin discontinued 11:05:50 Allens test performed on the right radial and ulnar artery. 11:06:20 Patient has been NPO for More than 6Hrs. 11:07:26 Skin Breakdown-none Vitals capture started with the following parameters, Patient=Adult, Interval=5 min, Initial Pr xximnt=752 mmHg, 11:09:24 Deflation Rate=5 mmHg, Cuff placed on left Arm 11:10:00 HR=69 bpm, PDNK=280/49 mmhg, SpO2=96.0 %, Resp=8 B/min, Pain=0, Melanie=10, Hutchinson=2 11:10:33 Reference ECG taken 11:11:44 Patient Warmer Placed on the Table. 11:14:57 HR=76 bpm, ILJK=831/52 mmhg, SpO2=94 %, Resp=18 B/min, Pain=0, Melanie=10, Hutchinson=2 11:15:21 A # 20 IV was noted in the Forearm (left). Grade = 0 Patient arrived on IV Solutions in Left Wrist via Peripheral IV. Pump/Drip Flow = 100 ml/hr usi ng NaCl .9. Ordered by 11:15:35 Saran Bang. Patient arrived on 20 mcg/min NITROGLYCERIN DRIP in Left Wrist via Peripheral IV. Pump/Drip Bernabe w = 6 ml/hr using 11:16:07 D5W with a concentration of 50 mg in 250 ml. Ordered by Saran Bang. 11:17:39 History and physical on the chart or being dictated. Assessment: Initial Case, HR=76 BPM, Rhythm=reg, ALSL=715/52 mmhg, Chest Pain=0, Edema=None, Co vanita=Normal, Skin = Warm Right Pulses: Neal Ped=1, Femoral=3, Radial=2 11:17:40 Left Pulses: Neal Ped=1 Lower Right Extremities: Color=Normal Neurological: State=Alert, Ox3, KANG Respiration: Resp=20 B/min, SpO2=94 % 11:18:27 Right Radial and groin(s) prepped with 2% chlorhexidine, and draped after a 3 min. waiting time. 11:20:00 HR=80 bpm, KLVB=674/54 mmhg, SpO2=94.0 %, Resp=11 B/min, Pain=0, Melanie=10, Hutchinson=2 11:22:17 Pressure channel 1 zeroed. 11:23:06 MD paged 11:25:03 HR=75 bpm, KZAZ=779/49 mmhg, SpO2=95 %, Resp=13 B/min, Pain=0, Melanie=10, Hutchinson=2 11:28:54 MD arrived. 11:30:00 HR=73 bpm, GGDM=500/57 mmhg, SpO2=94.0 %, Resp=23 B/min, Pain=0, Melanie=10, Hutchinson=2 Time Out. Correct patient, correct procedure, correct physician, power injector not loaded with contrast with surgical 11:31:28 team present. Time Out Concurred by MD and individual staff in procedure. 11:32:10 1 mg VERSED given in lab by Chloe Montague RN in Left Wrist via Peripheral IV. Ordered by Saran Bang. 11:32:25 Case Start 11:32:27 20 mL 1% XYLOCAINE given in lab by Saran Bang in Right Radial via Subcutaneous. 11:35:01 HR=69 bpm, VOMD=166/49 mmhg, SpO2=95.0 %, Resp=19 B/min, Pain=0, Melanie=10, Hutchinson=2 11:35:44 Access site was Radial Artery. RT 11:35:55 A wire was inserted via Radial (right). 11:36:06 A SHEATH, FR6.5 PRELUDE 11CM FR 6.5 was advanced into the Radial (right) using the Percutan eous technique. 5 mL (Bolus) RADIAL COCKTAIL given in lab by Saran Bang via Radial. Using [Solution Name]. Re ason: Ntg 200mcg 11:36:15 Verapamil 2.5mg Heparin 2500U. A TIG 4.0 GUIDE CATHETER CONVEY FR 6 was advanced over a wire. OMNIPAQUE, 350 MG, 150ML 150ML w as used 11:36:36 for injections. Recorded Pressure: Ao, HR=75, Condition=Condition 1 11:38:22 (Aorta) Ao 101/49/71 11:38:43 The LCA was injected and visualized at various angles. OMNIPAQUE, 350 MG, 150ML 150ML used . 11:40:00 HR=75 bpm, DASS=955/45 mmhg, SpO2=92.0 %, Resp=20 B/min, Pain=0, Melanie=10, Hutchinson=2 After removing the current catheter a JR 5.0 INFINITI CATHETER FR 6 was advanced over a WIRE, 3 MMJ .035 180CM 11:41:01 180CM. 11:43:06 The RCA was injected and visualized at various angles. OMNIPAQUE, 350 MG, 150ML 150ML used . After removing the current catheter a MPA-2 INFINITI CATHETER FR 6 was advanced over a WIRE, 3M MJ .035 180CM 11:43:42 180CM. 11:44:57 HR=73 bpm, FCVQ=553/58 mmhg, SpO2=95.0 %, Resp=10 B/min, Pain=0, Melanie=10, Hutchinson=2 Recorded Pressure: LV, HR=84, Condition=Condition 1 11:44:58 (Left Ventricle) LV 127/10/22 11:45:23 The LV was manually injected with 10 cc's and visualized. OMNIPAQUE, 350 MG, 150ML 150ML us ed. Recorded Pressure: LV, Ao, HR=79, Condition=Condition 1 11:45:28 (Left Ventricle) LV 129/9/20, (Aorta) Ao 132/60/89 11:45:55 Catheter was removed 11:47:17 Case End Assessment: Final Case, HR=77 BPM, Rhythm=REG, NMNJ=616/58 mmhg, Chest Pain=0, Edema=None, Col or=Normal, Skin = Warm Right Pulses: Neal Ped=1, Femoral=2, Radial=2 Left Pulses: Neal Ped=1 11:47:20 Lower Right Extremities: Color=Normal Lower Left Extremities: Color=Normal Neurological: State=Alert, Ox3, KANG Respiration: Resp=16 B/min, SpO2=95 % 11:47:59 Catheter(s) removed without difficulty Radial Compression Device Used. 15 mLs of air placed in BAND, RADIAL COMPRESSION TR SHORT 24 2 4CM. Affected 11:48:03 hand 94 % O2 saturation. 11:48:17 Sterile dressing applied to site 11:48:18 No case complications noted. 11:48:18 Cine recording checked. 11:48:20 Bedside Report will be given. 11:48:23 Contrast Scanned 11:48:26 A Left Heart Cath was performed. 11:49:45 Patient moved to stretcher 11:50:00 HR=76 bpm, RFVW=165/58 mmhg, SpO2=94.0 %, Resp=19 B/min, Pain=0, Melanie=10, Hutchinson=2 11:51:42 NITRO DISCONTINUED PER PHYSICIAN 11:53:44 200 mcg NTG (IC) given in lab by Saran Bang in Right Radial via Intra-arterial. FOR ROSS TH REMOVAL 11:55:01 HR=73 bpm, FMCM=719/68 mmhg, SpO2=95 %, Resp=16 B/min, Pain=0, Melanie=10, Hutchinson=2 11:57:30 2 mg VERSED given in lab by Chloe Montague, RN via Peripheral IV. 11:57:37 100 mcg NTG (IC) given in lab by Mani Dickson, RT(R) via Intra-arterial. 12:00:02 HR=77 bpm, BIIT=048/65 mmhg, SpO2=92.0 %, Resp=16 B/min, Pain=0, Melanie=10, Hutchinson=2 End Study - Contrast Media Used In Study Contrast Total Opened (mL) Total Used (mL) Total Wasted (mL) Omnipaque 55 55 0 End Study - Maximum Contrast Load Max Contrast Load (mL) 389.5 End Study - Radiation Exposure Fluoro Time (minutes) 3.2 End Study - Sheaths Sheaths Pulled By Sheath Hold Time (min) Mani Dickson End Study - Patient Disposition Complications Transferred To No Critical Care Bed
--- NOTE | 2017-06-11 12:08 | CATHPROC ---
Five9 HIS Report Study Information Study Number Admission Scheduled Start Study Start [id number] Jun 10 2017 6:51PM 06/11/2017 Jun 11 2017 10:47AM [place] [facility] Catheterization Admit Source Facility Department Other [facility] - Technical Support Engineer Physician and Clinical Staff Initial Saran Silva Resident Engineer Chloe Montague,MARLY Resident Engineer Gunner Marmolejo,MARLY Recorder Hiwot Infante,RT(R) Scrub Mani Dickson,RT(R) Procedures Performed Procedure Location (Site) Vessel Name Coronary Angiograms LCA Left Coronary Coronary Angiograms RCA Right Coronary L Heart Cath LV Gram-hand inj. LV LV Ventricle Wire insertion Radial (right) Radial Art. Equipment Time Licensed Prosthetist Description Size Mfg Part Number Used/Scraped TRANSDUCER, TRUWAVE [id number] 10:48 [employer] * Used W/STOCKCOCK *[id number] TIG 4.0 GUIDE CATHETER [id number] 11:29 [employer] FR 6 Used CONVEY *[id number] 534-623T *[id number] 534-642T *[id number] 10:48 [employer] PACK, CCL CUSTOM * Used *[id number] 10:48 [employer] PACER PEN, SKIN DUAL W/ RULER * Used *[id number] BAND, RADIAL COMPRESSION TR [id number] 11:48 [employer]ICAL 24CM Used SHORT 24 *[id number] 10:48 [employer] SHEATH, FR6.5 PRELUDE 11CM FR 6.5 038ACT Used *[id number] 10:48 [employer] WIRE, 3MMJ .035 180CM 180CM Used *[id number] 10:48 [employer], 4 PORT * Used *[id number] 11:37 [employer] OMNIPAQUE, 350 MG, 150ML 150ML [id number] Used 10:48 [employer] OMNIPAQUE, 350 MG, 150ML 150ML [id number] Used [id number] 10:48 [employer] BLANKET,WARM AIR CCL * Used *[id number] History: Current Medications Medication Dosage/Unit Route Frequency Last Date/Time Taken VASOTEC CARVEDILOL Statins (any) ASA HEPARIN History: Allergies Allergy Reaction No Known Allergies History: Risk Factors Family History of Hypertension Dyslipidemia Previous [place] Previous Heart Failure Premature CAD No Yes Yes No No Prior Valve Prior PCI Prior CABG Surgery No No No Cerebrovascular Peripheral Artery Chronic Lung On Dialysis Diabetes Disease Disease Disease No No No No No History: Symptoms/Diagnosis Selection Items Chest pain History: CV Disease Selection Items [place] History: Stress Tests Stress or Imaging Studies Performed No History: Other Current Smoker Method Quit Packs a Day Years Used Pack Years Yes Cigarettes 30 Years Ago 1 30 30 Labs Hgb (g/dl) Hct (%) WBC (l/cumm) Platelets (thousands) 11.60-17.00 35.00-51.00 4.00-11.00 150.00-450.00 12.9 38.3 8.8 356 Glucose (mg/dl) BUN (mg/dl) Creatinine (mg/dl) BUN:Creatinine (1:x) 74.00-106.00 7.00-18.00 0.50-1.30 10.00-20.00 110 15 0.8 18.8 Na (meq/l) K (meq/l) 136.00-145.00 3.50-5.10 138 3.9 INR (PTT:PT) 0.90-1.10 0.9 Troponin I (ng/ml) CPK (u/l) CPK-MB (ng/ML) 0.02-0.05 26.00-308.00 0.50-3.60 10.2 458 Not Drawn Medication Medication Total Dose (Bolus/Oral) Medication Total Dosage/Unit 1% XYLOCAINE 20 mL NTG (IC) 300 mcg RADIAL COCKTAIL 5 mL (Bolus) VERSED 3 mg Medications (Bolus/Oral) Medication Time Given Dosage/Unit Administered By Reason VERSED 06/11/2017 11:32:10 AM 1 mg Chloe Montague 1 mg VERSED given in lab by Chloe Montague, RN in Left Wrist via Peripheral IV. Ordered by Ernie Bnag. 1% XYLOCAINE 06/11/2017 11:32:27 AM 20 mL Saran Bang 20 mL 1% XYLOCAINE given in lab by Saran Bang in Right Radial via Subcutaneous. Ntg 200mcg Verapamil 2.5mg Heparin RADIAL COCKTAIL 06/11/2017 11:36:15 AM 5 mL (Bolus) Saran Bang 2500U 5 mL (Bolus) RADIAL COCKTAIL given in lab by Saran Bang via Radial. Using [Solution Name]. Reason: Ntg 200mcg Verapamil 2.5mg Heparin 2500U. NTG (IC) 06/11/2017 11:53:44 AM 200 mcg Saran Bang 200 mcg NTG (IC) given in lab by Saran Bang in Right Radial via Intra-arterial. FOR SHEATH REMOVAL VERSED 06/11/2017 11:57:30 AM 2 mg Chloe Montague 2 mg VERSED given in lab by Chloe Montague, RN via Peripheral IV. NTG (IC) 06/11/2017 11:57:37 AM 100 mcg Mani Dickson 100 mcg NTG (IC) given in lab by Mani Dickson, RT(R) via Intra-arterial. Medication (Drip) Medication Time Given Dosage/Unit Concentration/Unit Diluent (ml) Solution HEPARIN DRIP 06/11/2017 11:00:40 AM 800 units/hr 07092 units 250 NaCl .9 Patient arrived on 800 units/hr HEPARIN DRIP in Left Antecubital via Peripheral IV. Pump/Drip Flow = 8 ml/hr using NaCl .9 [place] [address] units in 250 ml. Ordered by Saran Bang. IV Solutions 06/11/2017 11:15:35 AM 0 mL (IV) NaCl .9 Patient arrived on IV Solutions in Left Wrist via Peripheral IV. Pump/Drip Flow = 100 ml/hr using NaC l .9. Ordered by Saran Bang. NITROGLYCERIN DRIP 06/11/2017 11:16:07 AM 20 mcg/min 50 mg 250 D5W Patient arrived on 20 mcg/min NITROGLYCERIN DRIP in Left Wrist via Peripheral IV. Pump/Drip Flow = 6 ml/hr using D5W with a concentration of 50 mg in 250 ml. Ordered by Saran Bang. Initial Case Assessment Cardiovascular HR Rhythm NIBP Chest Pain 76 reg 114/52 0 Edema Present Skin color Skin None Normal Warm Circulatory - Right Pulses Dorsalis Pedis Femoral Radial 1 3 2 Scale (0,1,2,3,4,d) Circulatory - Left Pulses Dorsalis Pedis Femoral Radial 1 Scale (0,1,2,3,4,d) Circulatory - Lower Extremities Color Lower Right Normal Neurological State Oriented to time-place- Alert Moves all extremities person Respiration - General Respiration Rate SpO2 (%) (B/min) 20 94 Final Case Assessment Cardiovascular HR Rhythm NIBP Chest Pain 77 REG 113/58 0 Edema Present Skin color Skin None Normal Warm Circulatory - Right Pulses Dorsalis Pedis Femoral Radial 1 2 2 Scale (0,1,2,3,4,d) Circulatory - Left Pulses Dorsalis Pedis Femoral Radial 1 Scale (0,1,2,3,4,d) Circulatory - Lower Extremities Color Lower Right Color Lower Left Normal Normal Neurological State Oriented to time-place- Alert Moves all extremities person Respiration - General Respiration Rate SpO2 (%) (B/min) 16 95 Chronological Log Time Study Chronological Log 11:00:00 Patient arrived via Bed. Patient arrived on 800 units/hr HEPARIN DRIP in Left Antecubital via Peripheral IV. Pump/Drip F low = 8 ml/hr using 11:00:40 NaCl .9 [place] [address] units in 250 ml. Ordered by Saran Bang. 11:00:48 A # 20 IV was noted in the Antecubital (left). Grade = 0 11:01:41 Patient Name, D.O.B, / Armband Verified By R.N. 11:02:45 Consent signed by the physician and the patient and verified by the Technical Support Engineer staff. 11:03:49 Pre-op and post- op instructions given; patient acknowledges understanding of instructions. 11:04:55 Verbal Stimulation=2 Physical Stimulation=2 Airway=2 Respiration=2 TOTAL=8. (0=absent, 1=li mited, 2=present) 11:05:19 heparin discontinued 11:05:50 Allens test performed on the right radial and ulnar artery. 11:06:20 Patient has been NPO for More than 6Hrs. 11:07:26 Skin Breakdown-none Vitals capture started with the following parameters, Patient=Adult, Interval=5 min, Initial Pr ugtmlz=717 mmHg, 11:09:24 Deflation Rate=5 mmHg, Cuff placed on left Arm 11:10:00 HR=69 bpm, CEEU=050/49 mmhg, SpO2=96.0 %, Resp=8 B/min, Pain=0, Melanie=10, Hutchinson=2 11:10:33 Reference ECG taken 11:11:44 Patient Warmer Placed on the Table. 11:14:57 HR=76 bpm, JHUR=399/52 mmhg, SpO2=94 %, Resp=18 B/min, Pain=0, Melanie=10, Hutchinson=2 11:15:21 A # 20 IV was noted in the Forearm (left). Grade = 0 Patient arrived on IV Solutions in Left Wrist via Peripheral IV. Pump/Drip Flow = 100 ml/hr usi ng NaCl .9. Ordered by 11:15:35 Saran Bang. Patient arrived on 20 mcg/min NITROGLYCERIN DRIP in Left Wrist via Peripheral IV. Pump/Drip Bernabe w = 6 ml/hr using 11:16:07 D5W with a concentration of 50 mg in 250 ml. Ordered by Saran Bang. 11:17:39 History and physical on the chart or being dictated. Assessment: Initial Case, HR=76 BPM, Rhythm=reg, GFVI=695/52 mmhg, Chest Pain=0, Edema=None, Co vanita=Normal, Skin = Warm Right Pulses: Neal Ped=1, Femoral=3, Radial=2 11:17:40 Left Pulses: Neal Ped=1 Lower Right Extremities: Color=Normal Neurological: State=Alert, Ox3, KANG Respiration: Resp=20 B/min, SpO2=94 % 11:18:27 Right Radial and groin(s) prepped with 2% chlorhexidine, and draped after a 3 min. waiting time. 11:20:00 HR=80 bpm, PQQZ=625/54 mmhg, SpO2=94.0 %, Resp=11 B/min, Pain=0, Melanie=10, Hutchinson=2 11:22:17 Pressure channel 1 zeroed. 11:23:06 MD paged 11:25:03 HR=75 bpm, WXFP=890/49 mmhg, SpO2=95 %, Resp=13 B/min, Pain=0, Melanie=10, Hutchinson=2 11:28:54 MD arrived. 11:30:00 HR=73 bpm, LPLO=569/57 mmhg, SpO2=94.0 %, Resp=23 B/min, Pain=0, Melanie=10, Hutchinson=2 Time Out. Correct patient, correct procedure, correct physician, power injector not loaded with contrast with surgical 11:31:28 team present. Time Out Concurred by MD and individual staff in procedure. 11:32:10 1 mg VERSED given in lab by Chloe Montague RN in Left Wrist via Peripheral IV. Ordered by Saran Bang. 11:32:25 Case Start 11:32:27 20 mL 1% XYLOCAINE given in lab by Saran Bang in Right Radial via Subcutaneous. 11:35:01 HR=69 bpm, RPFT=809/49 mmhg, SpO2=95.0 %, Resp=19 B/min, Pain=0, Melanie=10, Hutchinson=2 11:35:44 Access site was Radial Artery. RT 11:35:55 A wire was inserted via Radial (right). 11:36:06 A SHEATH, FR6.5 PRELUDE 11CM FR 6.5 was advanced into the Radial (right) using the Percutan eous technique. 5 mL (Bolus) RADIAL COCKTAIL given in lab by Saran Bang via Radial. Using [Solution Name]. Re ason: Ntg 200mcg 11:36:15 Verapamil 2.5mg Heparin 2500U. A TIG 4.0 GUIDE CATHETER CONVEY FR 6 was advanced over a wire. OMNIPAQUE, 350 MG, 150ML 150ML w as used 11:36:36 for injections. Recorded Pressure: Ao, HR=75, Condition=Condition 1 11:38:22 (Aorta) Ao 101/49/71 11:38:43 The LCA was injected and visualized at various angles. OMNIPAQUE, 350 MG, 150ML 150ML used . 11:40:00 HR=75 bpm, KIYG=506/45 mmhg, SpO2=92.0 %, Resp=20 B/min, Pain=0, Melanie=10, Hutchinson=2 After removing the current catheter a JR 5.0 INFINITI CATHETER FR 6 was advanced over a WIRE, 3 MMJ .035 180CM 11:41:01 180CM. 11:43:06 The RCA was injected and visualized at various angles. OMNIPAQUE, 350 MG, 150ML 150ML used . After removing the current catheter a MPA-2 INFINITI CATHETER FR 6 was advanced over a WIRE, 3M MJ .035 180CM 11:43:42 180CM. 11:44:57 HR=73 bpm, YFVW=250/58 mmhg, SpO2=95.0 %, Resp=10 B/min, Pain=0, Melanie=10, Hutchinson=2 Recorded Pressure: LV, HR=84, Condition=Condition 1 11:44:58 (Left Ventricle) LV 127/10/22 11:45:23 The LV was manually injected with 10 cc's and visualized. OMNIPAQUE, 350 MG, 150ML 150ML us ed. Recorded Pressure: LV, Ao, HR=79, Condition=Condition 1 11:45:28 (Left Ventricle) LV 129/9/20, (Aorta) Ao 132/60/89 11:45:55 Catheter was removed 11:47:17 Case End Assessment: Final Case, HR=77 BPM, Rhythm=REG, MWLQ=683/58 mmhg, Chest Pain=0, Edema=None, Col or=Normal, Skin = Warm Right Pulses: Neal Ped=1, Femoral=2, Radial=2 Left Pulses: Neal Ped=1 11:47:20 Lower Right Extremities: Color=Normal Lower Left Extremities: Color=Normal Neurological: State=Alert, Ox3, KANG Respiration: Resp=16 B/min, SpO2=95 % 11:47:59 Catheter(s) removed without difficulty Radial Compression Device Used. 15 mLs of air placed in BAND, RADIAL COMPRESSION TR SHORT 24 2 4CM. Affected 11:48:03 hand 94 % O2 saturation. 11:48:17 Sterile dressing applied to site 11:48:18 No case complications noted. 11:48:18 Cine recording checked. 11:48:20 Bedside Report will be given. 11:48:23 Contrast Scanned 11:48:26 A Left Heart Cath was performed. 11:49:45 Patient moved to stretcher 11:50:00 HR=76 bpm, WHGA=670/58 mmhg, SpO2=94.0 %, Resp=19 B/min, Pain=0, Melanie=10, Hutchinson=2 11:51:42 NITRO DISCONTINUED PER PHYSICIAN 11:53:44 200 mcg NTG (IC) given in lab by Saran Bang in Right Radial via Intra-arterial. FOR ROSS TH REMOVAL 11:55:01 HR=73 bpm, TUKF=720/68 mmhg, SpO2=95 %, Resp=16 B/min, Pain=0, Melanie=10, Hutchinson=2 11:57:30 2 mg VERSED given in lab by Chloe Montgaue, RN via Peripheral IV. 11:57:37 100 mcg NTG (IC) given in lab by Mani Dickson, RT(R) via Intra-arterial. 12:00:02 HR=77 bpm, QEZK=856/65 mmhg, SpO2=92.0 %, Resp=16 B/min, Pain=0, Melanie=10, Hutchinson=2 End Study - Contrast Media Used In Study Contrast Total Opened (mL) Total Used (mL) Total Wasted (mL) Omnipaque 55 55 0 End Study - Maximum Contrast Load Max Contrast Load (mL) 389.5 End Study - Radiation Exposure Fluoro Time (minutes) 3.2 End Study - Sheaths Sheaths Pulled By Sheath Hold Time (min) Mani Dickson End Study - Patient Disposition Complications Transferred To No Critical Care Bed
--- NOTE | 2017-06-11 12:08 | CATHPROC ---
cartmi HIS Report Study Information Study Number Admission Scheduled Start Study Start [id number] Jun 10 2017 6:51PM 06/11/2017 Jun 11 2017 10:47AM [place] [facility] Cardiac Catheterization Admit Source Facility Department Other [facility] - Agile Project Manager Physician and Clinical Staff Initial Saran Silva Address Change Clerk Chloe Montague,MARLY Address Change Clerk Gunner Marmolejo,MARLY Recorder Hiwot Infante,RT(R) Scrub Mani Dickson,RT(R) Procedures Performed Procedure Location (Site) Vessel Name Coronary Angiograms LCA Left Coronary Coronary Angiograms RCA Right Coronary L Heart Cath LV Gram-hand inj. LV LV Ventricle Wire insertion Radial (right) Radial Art. Equipment Time Cyber Incident Handler Description Size Mfg Part Number Used/Scraped TRANSDUCER, TRUWAVE [id number] 10:48 [employer] * Used W/STOCKCOCK *[id number] TIG 4.0 GUIDE CATHETER [id number] 11:29 [employer] FR 6 Used CONVEY *[id number] *[id number] *[id number] 10:48 [employer] INDUSTRIES PACK, CCL CUSTOM * Used *[id number] 10:48 [employer] PACER PEN, SKIN DUAL W/ RULER * Used *[id number] BAND, RADIAL COMPRESSION TR [id number] 11:48 [employer] MEDICAL 24CM Used SHORT 24 *[id number] 10:48 [employer] SHEATH, FR6.5 PRELUDE 11CM FR 6.5 038ACT Used *[id number] 10:48 [employer] WIRE, 3MMJ .035 180CM 180CM Used *[id number] 10:48 [employer] MANIFOLD, 4 PORT * Used *[id number] 11:37 [employer] OMNIPAQUE, 350 MG, 150ML 150ML [id number] Used 10:48 [employer] OMNIPAQUE, 350 MG, 150ML 150ML [id number] Used [id number] 10:48 [employer] BLANKET,WARM AIR CCL * Used *[id number] History: Current Medications Medication Dosage/Unit Route Frequency Last Date/Time Taken VASOTEC CARVEDILOL Statins (any) ASA HEPARIN History: Allergies Allergy Reaction No Known Allergies History: Risk Factors Family History of Hypertension Dyslipidemia Previous NC Previous Heart Failure Premature CAD No Yes Yes No No Prior Valve Prior PCI Prior CABG Surgery No No No Cerebrovascular Peripheral Artery Chronic Lung On Dialysis Diabetes Disease Disease Disease No No No No No History: Symptoms/Diagnosis Selection Items Chest pain History: CV Disease Selection Items NC History: Stress Tests Stress or Imaging Studies Performed No History: Other Current Smoker Method Quit Packs a Day Years Used Pack Years Yes Cigarettes 30 Years Ago 1 30 30 Labs Hgb (g/dl) Hct (%) WBC (l/cumm) Platelets (thousands) 11.60-17.00 35.00-51.00 4.00-11.00 150.00-450.00 12.9 38.3 8.8 356 Glucose (mg/dl) BUN (mg/dl) Creatinine (mg/dl) BUN:Creatinine (1:x) 74.00-106.00 7.00-18.00 0.50-1.30 10.00-20.00 110 15 0.8 18.8 Na (meq/l) K (meq/l) 136.00-145.00 3.50-5.10 138 3.9 INR (PTT:PT) 0.90-1.10 0.9 Troponin I (ng/ml) CPK (u/l) CPK-MB (ng/ML) 0.02-0.05 26.00-308.00 0.50-3.60 10.2 458 Not Drawn Medication Medication Total Dose (Bolus/Oral) Medication Total Dosage/Unit 1% XYLOCAINE 20 mL NTG (IC) 300 mcg RADIAL COCKTAIL 5 mL (Bolus) VERSED 3 mg Medications (Bolus/Oral) Medication Time Given Dosage/Unit Administered By Reason VERSED 06/11/2017 11:32:10 AM 1 mg Chloe Montague 1 mg VERSED given in lab by Chloe Montague, RN in Left Wrist via Peripheral IV. Ordered by Ernie Bang. 1% XYLOCAINE 06/11/2017 11:32:27 AM 20 mL Saran Bang 20 mL 1% XYLOCAINE given in lab by Saran Bang in Right Radial via Subcutaneous. Ntg 200mcg Verapamil 2.5mg Heparin RADIAL COCKTAIL 06/11/2017 11:36:15 AM 5 mL (Bolus) Saran Bang 2500U 5 mL (Bolus) RADIAL COCKTAIL given in lab by Saran Bang via Radial. Using [Solution Name]. Reason: Ntg 200mcg Verapamil 2.5mg Heparin 2500U. NTG (IC) 06/11/2017 11:53:44 AM 200 mcg Saran Bang 200 mcg NTG (IC) given in lab by Saran Bang in Right Radial via Intra-arterial. FOR SHEATH REMOVAL VERSED 06/11/2017 11:57:30 AM 2 mg Chloe Montague 2 mg VERSED given in lab by Chloe Montague, RN via Peripheral IV. NTG (IC) 06/11/2017 11:57:37 AM 100 mcg Mani Dickson 100 mcg NTG (IC) given in lab by Mani Dickson, RT(R) via Intra-arterial. Medication (Drip) Medication Time Given Dosage/Unit Concentration/Unit Diluent (ml) Solution HEPARIN DRIP 06/11/2017 11:00:40 AM 800 units/hr 12694 units 250 NaCl .9 Patient arrived on 800 units/hr HEPARIN DRIP in Left Antecubital via Peripheral IV. Pump/Drip Flow = 8 ml/hr using NaCl .9 [place] [address] units in 250 ml. Ordered by Saran Bang. IV Solutions 06/11/2017 11:15:35 AM 0 mL (IV) NaCl .9 Patient arrived on IV Solutions in Left Wrist via Peripheral IV. Pump/Drip Flow = 100 ml/hr using NaC l .9. Ordered by Saran Bang. NITROGLYCERIN DRIP 06/11/2017 11:16:07 AM 20 mcg/min 50 mg 250 D5W Patient arrived on 20 mcg/min NITROGLYCERIN DRIP in Left Wrist via Peripheral IV. Pump/Drip Flow = 6 ml/hr using D5W with a concentration of 50 mg in 250 ml. Ordered by Saran Bang. Initial Case Assessment Cardiovascular HR Rhythm NIBP Chest Pain 76 reg 114/52 0 Edema Present Skin color Skin None Normal Warm Circulatory - Right Pulses Dorsalis Pedis Femoral Radial 1 3 2 Scale (0,1,2,3,4,d) Circulatory - Left Pulses Dorsalis Pedis Femoral Radial 1 Scale (0,1,2,3,4,d) Circulatory - Lower Extremities Color Lower Right Normal Neurological State Oriented to time-place- Alert Moves all extremities person Respiration - General Respiration Rate SpO2 (%) (B/min) 20 94 Final Case Assessment Cardiovascular HR Rhythm NIBP Chest Pain 77 REG 113/58 0 Edema Present Skin color Skin None Normal Warm Circulatory - Right Pulses Dorsalis Pedis Femoral Radial 1 2 2 Scale (0,1,2,3,4,d) Circulatory - Left Pulses Dorsalis Pedis Femoral Radial 1 Scale (0,1,2,3,4,d) Circulatory - Lower Extremities Color Lower Right Color Lower Left Normal Normal Neurological State Oriented to time-place- Alert Moves all extremities person Respiration - General Respiration Rate SpO2 (%) (B/min) 16 95 Chronological Log Time Study Chronological Log 11:00:00 Patient arrived via Bed. Patient arrived on 800 units/hr HEPARIN DRIP in Left Antecubital via Peripheral IV. Pump/Drip F low = 8 ml/hr using 11:00:40 NaCl .9 [place] [address] units in 250 ml. Ordered by Saran Bang. 11:00:48 A # 20 IV was noted in the Antecubital (left). Grade = 0 11:01:41 Patient Name, D.O.B, / Armband Verified By R.N. 11:02:45 Consent signed by the physician and the patient and verified by the Agile Project Manager staff. 11:03:49 Pre-op and post- op instructions given; patient acknowledges understanding of instructions. 11:04:55 Verbal Stimulation=2 Physical Stimulation=2 Airway=2 Respiration=2 TOTAL=8. (0=absent, 1=li mited, 2=present) 11:05:19 heparin discontinued 11:05:50 Allens test performed on the right radial and ulnar artery. 11:06:20 Patient has been NPO for More than 6Hrs. 11:07:26 Skin Breakdown-none Vitals capture started with the following parameters, Patient=Adult, Interval=5 min, Initial Pr yzgwkr=144 mmHg, 11:09:24 Deflation Rate=5 mmHg, Cuff placed on left Arm 11:10:00 HR=69 bpm, LHHF=145/49 mmhg, SpO2=96.0 %, Resp=8 B/min, Pain=0, Melanie=10, Hutchinson=2 11:10:33 Reference ECG taken 11:11:44 Patient Warmer Placed on the Table. 11:14:57 HR=76 bpm, ZUAK=226/52 mmhg, SpO2=94 %, Resp=18 B/min, Pain=0, Melanie=10, Hutchinson=2 11:15:21 A # 20 IV was noted in the Forearm (left). Grade = 0 Patient arrived on IV Solutions in Left Wrist via Peripheral IV. Pump/Drip Flow = 100 ml/hr usi ng NaCl .9. Ordered by 11:15:35 Saran Bang. Patient arrived on 20 mcg/min NITROGLYCERIN DRIP in Left Wrist via Peripheral IV. Pump/Drip Bernabe w = 6 ml/hr using 11:16:07 D5W with a concentration of 50 mg in 250 ml. Ordered by Saran Bang. 11:17:39 History and physical on the chart or being dictated. Assessment: Initial Case, HR=76 BPM, Rhythm=reg, YZZV=747/52 mmhg, Chest Pain=0, Edema=None, Co vanita=Normal, Skin = Warm Right Pulses: Neal Ped=1, Femoral=3, Radial=2 11:17:40 Left Pulses: Neal Ped=1 Lower Right Extremities: Color=Normal Neurological: State=Alert, Ox3, KANG Respiration: Resp=20 B/min, SpO2=94 % 11:18:27 Right Radial and groin(s) prepped with 2% chlorhexidine, and draped after a 3 min. waiting time. 11:20:00 HR=80 bpm, PZAJ=307/54 mmhg, SpO2=94.0 %, Resp=11 B/min, Pain=0, Melanie=10, Hutchinson=2 11:22:17 Pressure channel 1 zeroed. 11:23:06 MD paged 11:25:03 HR=75 bpm, HCHY=232/49 mmhg, SpO2=95 %, Resp=13 B/min, Pain=0, Melanie=10, Hutchinson=2 11:28:54 MD arrived. 11:30:00 HR=73 bpm, JSBM=344/57 mmhg, SpO2=94.0 %, Resp=23 B/min, Pain=0, Melanie=10, Hutchinson=2 Time Out. Correct patient, correct procedure, correct physician, power injector not loaded with contrast with surgical 11:31:28 team present. Time Out Concurred by MD and individual staff in procedure. 11:32:10 1 mg VERSED given in lab by Chloe Montague RN in Left Wrist via Peripheral IV. Ordered by Saran Bang. 11:32:25 Case Start 11:32:27 20 mL 1% XYLOCAINE given in lab by Saran Bang in Right Radial via Subcutaneous. 11:35:01 HR=69 bpm, YYAO=205/49 mmhg, SpO2=95.0 %, Resp=19 B/min, Pain=0, Melanie=10, Hutchinson=2 11:35:44 Access site was Radial Artery. RT 11:35:55 A wire was inserted via Radial (right). 11:36:06 A SHEATH, FR6.5 PRELUDE 11CM FR 6.5 was advanced into the Radial (right) using the Percutan eous technique. 5 mL (Bolus) RADIAL COCKTAIL given in lab by Saran Bang via Radial. Using [Solution Name]. Re ason: Ntg 200mcg 11:36:15 Verapamil 2.5mg Heparin 2500U. A TIG 4.0 GUIDE CATHETER CONVEY FR 6 was advanced over a wire. OMNIPAQUE, 350 MG, 150ML 150ML w as used 11:36:36 for injections. Recorded Pressure: Ao, HR=75, Condition=Condition 1 11:38:22 (Aorta) Ao 101/49/71 11:38:43 The LCA was injected and visualized at various angles. OMNIPAQUE, 350 MG, 150ML 150ML used . 11:40:00 HR=75 bpm, FBEG=788/45 mmhg, SpO2=92.0 %, Resp=20 B/min, Pain=0, Melanie=10, Hutchinson=2 After removing the current catheter a JR 5.0 INFINITI CATHETER FR 6 was advanced over a WIRE, 3 MMJ .035 180CM 11:41:01 180CM. 11:43:06 The RCA was injected and visualized at various angles. OMNIPAQUE, 350 MG, 150ML 150ML used . After removing the current catheter a MPA-2 INFINITI CATHETER FR 6 was advanced over a WIRE, 3M MJ .035 180CM 11:43:42 180CM. 11:44:57 HR=73 bpm, VGHX=048/58 mmhg, SpO2=95.0 %, Resp=10 B/min, Pain=0, Melanie=10, Hutchinson=2 Recorded Pressure: LV, HR=84, Condition=Condition 1 11:44:58 (Left Ventricle) LV 127/10/22 11:45:23 The LV was manually injected with 10 cc's and visualized. OMNIPAQUE, 350 MG, 150ML 150ML us ed. Recorded Pressure: LV, Ao, HR=79, Condition=Condition 1 11:45:28 (Left Ventricle) LV 129/9/20, (Aorta) Ao 132/60/89 11:45:55 Catheter was removed 11:47:17 Case End Assessment: Final Case, HR=77 BPM, Rhythm=REG, BWXR=748/58 mmhg, Chest Pain=0, Edema=None, Col or=Normal, Skin = Warm Right Pulses: Neal Ped=1, Femoral=2, Radial=2 Left Pulses: Neal Ped=1 11:47:20 Lower Right Extremities: Color=Normal Lower Left Extremities: Color=Normal Neurological: State=Alert, Ox3, KANG Respiration: Resp=16 B/min, SpO2=95 % 11:47:59 Catheter(s) removed without difficulty Radial Compression Device Used. 15 mLs of air placed in BAND, RADIAL COMPRESSION TR SHORT 24 2 4CM. Affected 11:48:03 hand 94 % O2 saturation. 11:48:17 Sterile dressing applied to site 11:48:18 No case complications noted. 11:48:18 Cine recording checked. 11:48:20 Bedside Report will be given. 11:48:23 Contrast Scanned 11:48:26 A Left Heart Cath was performed. 11:49:45 Patient moved to stretcher 11:50:00 HR=76 bpm, LRAD=655/58 mmhg, SpO2=94.0 %, Resp=19 B/min, Pain=0, Melanie=10, Hutchinson=2 11:51:42 NITRO DISCONTINUED PER PHYSICIAN 11:53:44 200 mcg NTG (IC) given in lab by Saran Bang in Right Radial via Intra-arterial. FOR ROSS TH REMOVAL 11:55:01 HR=73 bpm, WKHJ=946/68 mmhg, SpO2=95 %, Resp=16 B/min, Pain=0, Melanie=10, Hutchinson=2 11:57:30 2 mg VERSED given in lab by Chloe Montague, RN via Peripheral IV. 11:57:37 100 mcg NTG (IC) given in lab by Mani Dickson, RT(R) via Intra-arterial. 12:00:02 HR=77 bpm, MGSS=542/65 mmhg, SpO2=92.0 %, Resp=16 B/min, Pain=0, Melanie=10, Hutchinson=2 End Study - Contrast Media Used In Study Contrast Total Opened (mL) Total Used (mL) Total Wasted (mL) Omnipaque 55 55 0 End Study - Maximum Contrast Load Max Contrast Load (mL) 389.5 End Study - Radiation Exposure Fluoro Time (minutes) 3.2 End Study - Sheaths Sheaths Pulled By Sheath Hold Time (min) Mani Dickson End Study - Patient Disposition Complications Transferred To No Critical Care Bed
--- NOTE | 2017-06-11 12:14 | MA ---
cc: BHARATI SCOTT M.D. DATE: 06/11/2017 PROCEDURE PERFORMED Left heart catheterization, selective coronary angiography, left ventriculography. PROCEDURE The patient was brought to the cardiac catheterization laboratory in a fasting state after having signed informed consent. The right radial region was prepped and draped as per policy and anesthetized with 1% lidocaine. Arterial access was obtained via the right radial artery and a 6-Lithuanian sheath placed. Coronary arteriography was performed using a tiger catheter. Left ventriculography was done using a multipurpose catheter. There were no apparent immediate complications. A radial artery compression band was applied to the arteriotomy site at the end of the case, achieving good hemostasis. HEMODYNAMIC DATA Left ventricle 130 with an end-diastolic pressure of 9. Aorta 132/60 with a mean of 89. There was no significant transvalvular aortic gradient on pullback of the pigtail catheter. CORONARY ARTERIOGRAPHY The left main has minimal luminal irregularities. The left anterior descending gives rise to a small caliber diagonal which is totally occluded distally. The proximal LAD has 40% stenosis right after the takeoff of this diagonal. The mid to distal LAD appears to be angiographically normal. The left circumflex is a medium-sized vessel giving rise to medium-sized obtuse marginal. There are minimal luminal irregularities in the left circumflex and obtuse marginal. The right coronary artery is a medium-sized dominant vessel which is diffusely diseased. There is up to 30% proximal stenosis, 10% mid disease and 10-15% dist disease. The posterior descending artery is quite small in caliber and free of disease. LEFT VENTRICULOGRAPHY Contrast injection of the left ventricle reveals a small area of anterolateral akinesis. Ejection fraction is estimated at 65%. CONCLUSION 1. Totally occluded but very small caliber diagonal, the patient's infarct-related vessel, otherwise overall mild disease. 2. Normal left ventricular function with estimated ejection fraction of 65%. MD DAISY Lezama/TLL /11:58 AM /12:04 PM VESTA
[2017-06-11] MEDS ORDERED: NITROGLYCERIN INJ 5 ML ONE ×2 (12:31)
[2017-06-11] MEDS ORDERED: MISC INFORMATION XX ONE ×2 (12:45)
--- NOTE | 2017-06-11 15:21 | EKG ---
Date Performed: 06/11/2017 Time Performed: 06:46:58 PTAGE: 82 years EKG: Sinus rhythm with borderline 1st degree A-V block Poor R wave progression - probable normal variant Nonspecific S T-T changes Abnormal ECG PREVIOUS TRACING : 06/10/2017 20.45 Compared to prior tracing no significant change DOCTOR: Khoi Babb Interpretating Date/Time 06/11/2017 15:20:33
--- NOTE | 2017-06-11 15:30 | EKG ---
Date Performed: 06/11/2017 Time Performed: 01:38:56 PTAGE: 82 years EKG: Sinus rhythm Poor R wave progression - probable normal variant ST-T changes are nonspecific Borderline ECG Compar ed to prior tracing no significant change DOCTOR: Khoi Babb Interpretating Date/Time 06/11/2017 15:28:50
--- NOTE | 2017-06-11 15:39 | EKG ---
Date Performed: 06/10/2017 Time Performed: 20:45:16 PTAGE: 82 years EKG: Sinus rhythm NONSPECIFIC T-WAVE ABNORMALITY BORDERLINE ECG PREVIOUS TRACING : 06/10/2017 17.10 Compared to prior tracing no significant change DOCTOR: Khoi Babb Interpretating Date/Time 06/11/2017 15:39:13
[2017-06-12] VITALS (17 sets, daily range): BP systolic 118–163; BP diastolic 57–67; PULSE 61–94; RESP 16–20; TEMP 97.8–98.5; O2SAT 92–99
[2017-06-12] MEDS: ENALAPRIL MALEATE 5 MG TAB PO SCH ×2 (08:06)
[2017-06-12] MEDS: PRAVASTATIN SOD 40 MG TAB PO SCH ×2 (08:06)
[2017-06-12] MEDS: CARVEDILOL 3.125 MG TAB PO SCH ×2 (08:06)
[2017-06-12] MEDS: SODIUM CHLORIDE 0.9% FLUSH 10 ML FLUSH IV FLUSH SCH ×2 (08:09)
--- NOTE | 2017-06-12 08:12 | PD.CARD.PN ---
Subjective Subjective Remarks No further CP, axillary pain. No dyspnea, dizziness, palpitations. Objective Medications Item Value Date Time Aspirin 325 mg 06/12/17 0900 (Aspirin) DAILY/PO Pravastatin Sodium 40 mg 06/11/17 0900 (Pravachol) DAILY/PO 06/11/17 0938 Nitroglycerin/ 250 ml @ 1.5 mls/hr 06/10/17 2315 Dextrose TITRATE PRN/IV 06/10/17 2330 Carvedilol 3.125 mg 06/10/172114 (Coreg) Q12HR/PO 06/11/172048 Enalapril Maleate 5 mg 06/10/172099 (Vasotec) BID/PO 06/11/172048 Current Medications Medications (Trade) Dose Ordered Sig/Jazmín Route Start Time Stop Time Status Last Admin (NS Flush) 2 ml UNSCH PRN IV FLUSH 06/10/17 19:00 (NS Flush) 2 ml BID IV FLUSH 06/10/17 21:00 06/11/17 21:00 (Vasotec) 5 mg BID PO 06/10/17 21:00 06/11/17 20:49 (Aspirin) 325 mg DAILY PO 06/12/17 09:00 (Nitrostat Sl) 0.4 mg Q5M PRN SL 06/10/17 19:00 (Coreg) 3.125 mg Q12HR PO 06/10/17 21:15 06/11/17 20:49 (Pravachol) 40 mg DAILY PO 06/11/17 09:00 06/11/17 09:38 Nitroglycerin/ Dextrose 250 ml @ 1.5 mls/hr TITRATE PRN IV 06/10/17 23:15 06/10/17 23:30 (Benadryl) 50 mg PREDATOR CONTROL TRAPPER PO 06/11/17 10:00 06/15/17 09:59 06/11/17 10:30 (Valium) 10 mg PREDATOR CONTROL TRAPPER PO 06/11/17 10:00 06/15/17 09:59 06/11/17 10:30 Vital Signs / I&O Vital Signs Date Time Temp Pulse Resp B/P (MAP) Pulse Ox O2 Delivery O2 Flow Rate FiO2 06/12/17 07:51 98.0 68 18 146/64 (91) 96 06/12/17 06:00 65 06/12/17 05:00 65 06/12/17 04:00 77 06/12/17 04:00 98.5 77 20 145/63 (90) 94 06/12/17 03:00 69 06/12/17 02:00 65 06/12/17 01:00 69 06/12/17 00:00 98.5 75 20 163/67 (99) 92 06/12/17 00:00 68 06/11/17 23:00 62 06/11/17 22:00 92 06/11/17 21:00 82 06/11/17 20:00 98.2 75 20 168/74 (105) 97 06/11/17 20:00 82 06/11/17 19:00 75 06/11/17 18:00 76 06/11/17 17:00 74 06/11/17 16:00 78 06/11/17 15:36 98.4 72 18 116/62 (80) 93 06/11/17 15:00 66 06/11/17 14:00 78 06/11/17 13:00 75 06/11/17 10:00 78 06/11/17 09:00 74 I/O 06/11/17 06/11/17 06/11/17 06/12/17 06/12/17 06/12/17 07:00 15:00 23:00 07:00 15:00 23:00 Intake Total 97 ml 2120 ml 240 ml Output Total 300 ml 750 ml 600 ml Balance -203 ml 1370 ml -360 ml Intake Oral 0 ml 620 ml 240 ml IV Total 97 ml 1500 ml Output Urine Total 300 ml 750 ml 600 ml # Bowel Movements 0 0 0 Physical Exam GENERAL: Well developed, well nourished. No acute distress. HEENT: Jugular venous pressure is normal. CHEST: Lungs clear to auscultation bilaterally. Unlabored respiratory effort. CARDIAC: Regular rate and rhythm without S3, S4, or murmur. ABDOMEN: Soft, nontender, no hepatosplenomegaly. Bowel sounds present. EXTREMITIES: No clubbing, cyanosis, or edema. Right radial arteriotomy site stable, no hematoma. Laboratory Laboratory Tests Test 06/11/17 08:36 Total Creatine Kinase 458 U/L Creatine Kinase MB 45.4 NG/ML Creatine Kinase MB % 9.9 % Troponin I 10.20 NG/ML Assessment and Plan Problem List: (1) NSTEMI (non-ST elevated myocardial infarction) ICD Codes: I21.4 - Non-ST elevation (NSTEMI) myocardial infarction Status: Acute Plan: Stable overnight. No further angina. No CHF/arrhythmias. Right radial arteriotomy site OK. Appears patient sustained small LA due to occlusion of very small caliber diagonal. EF 65%. REC OK to discharge later this afternoon continue beta dianna, JAYCEE-I, increase doses continue aspirin, statin 3-4 week f/u with me (2) Hypertension ICD Codes: I10 - Essential (primary) hypertension Status: Chronic Plan: Suboptimal BP control. Rec increase carvedilol and enalapril dosing. (3) Dyslipidemia ICD Codes: E78.5 - Hyperlipidemia, unspecified Status: Chronic Plan: Good lipid profile except very low HDL. Rec continue statin. Code Status full code Discussed Condition With patient Problem Qualifiers (1) Hypertension: Qualified Codes: I10 - Essential (primary) hypertension Saran Bang MD Jun 12, 2017 08:12
[2017-06-12] MEDS ORDERED: CARVEDILOL 6.25 MG TAB PO SCH ×4 (09:00→21:00)
[2017-06-12] MEDS ORDERED: ENALAPRIL MALEATE 5 MG TAB PO SCH ×2 (09:00)
[2017-06-12] MEDS ORDERED: ASPIRIN 325 MG TAB PO SCH ×2 (09:00)
[2017-06-12] MEDS ORDERED: ENALAPRIL MALEATE 5 MG TAB PO ONE ×2 (09:45)
[2017-06-12] MEDS ORDERED: CARVEDILOL 3.125 MG TAB PO ONE ×2 (09:45)
[2017-06-12] MEDS ORDERED: ASPI325T PO ×2 (14:02)
[2017-06-12] MEDS ORDERED: ENAL10TA PO ×2 (14:04)
[2017-06-12] MEDS ORDERED: CARV6.25 PO ×2 (14:04)
--- NOTE | 2017-06-12 15:51 | HHI.PR ---
Subjective Remarks No complaint of chest pain. Wants to go home. Denies any shortness of breath. Objective Vitals Vital Signs Date Time Temp Pulse Resp B/P (MAP) Pulse Ox O2 Delivery O2 Flow Rate FiO2 06/12/17 14:13 67 06/12/17 13:08 63 06/12/17 12:23 63 06/12/17 11:08 97.8 77 16 118/57 (77) 99 06/12/17 11:00 61 06/12/17 10:16 65 06/12/17 09:00 94 06/12/17 08:00 64 06/12/17 07:51 98.0 68 18 146/64 (91) 96 06/12/17 07:00 66 06/12/17 06:00 65 06/12/17 05:00 65 06/12/17 04:00 77 06/12/17 04:00 98.5 77 20 145/63 (90) 94 06/12/17 03:00 69 06/12/17 02:00 65 06/12/17 01:00 69 06/12/17 00:00 98.5 75 20 163/67 (99) 92 06/12/17 00:00 68 06/11/17 23:00 62 06/11/17 22:00 92 06/11/17 21:00 82 06/11/17 20:00 98.2 75 20 168/74 (105) 97 06/11/17 20:00 82 06/11/17 19:00 75 06/11/17 18:00 76 06/11/17 17:00 74 06/11/17 16:00 78 I/O 06/11/17 06/11/17 06/11/17 06/12/17 06/12/17 06/12/17 07:00 15:00 23:00 07:00 15:00 23:00 Intake Total 97 ml 2120 ml 240 ml Output Total 300 ml 750 ml 600 ml Balance -203 ml 1370 ml -360 ml Intake Oral 0 ml 620 ml 240 ml IV Total 97 ml 1500 ml Output Urine Total 300 ml 750 ml 600 ml # Bowel Movements 0 0 0 Result Diagram: 06/10/17 1720 06/11/17 0356 Imaging Last Impressions Aorta CTA 06/10/17 1907 Signed Impressions: Service Date/Time: Lillian, June 10, 2017 19:33 - CONCLUSION: 1. No aortic dissection. 2. Atherosclerotic change with calcification and plaque. 3. Small hiatal hernia 4. Prominent uterus with left-sided mass measuring up to 4 cm. This is nonspecific. Carlos Patiño MD Chest X-Ray 06/10/17 1720 Signed Impressions: Service Date/Time: Saturday, June 10, 2017 17:50 - CONCLUSION: 1. Cardiomegaly. No acute pulmonary disease. Irvin Saba MD Head CT 06/10/17 0000 Signed Impressions: Service Date/Time: Saturday, June 10, 2017 18:07 - CONCLUSION: Negative noncontrast CT brain. Mario Mahmood MD Objective Remarks GENERAL: This is a well-nourished, well-developed patient, in no apparent distress. CARDIOVASCULAR: Regular rate and rhythm RESPIRATORY: Clear to auscultation. Breath sounds equal bilaterally. No wheezes , rales, or rhonchi. GASTROINTESTINAL: Abdomen soft, non-tender, nondistended. Normal active bowel sounds MUSCULOSKELETAL: Extremities without clubbing, cyanosis, or edema. NEURO: Alert & Oriented x4 to person, place, time, situation. Moves all ext x4 A/P Problem List: (1) NSTEMI (non-ST elevated myocardial infarction) ICD Code: I21.4 - Non-ST elevation (NSTEMI) myocardial infarction Status: Acute (2) Chest pain ICD Code: R07.9 - Chest pain, unspecified Status: Acute Assessment and Plan 1. Non-ST elevation myocardial infarct status post cardiac catheterization with occlusion of left anterior descending artery. Patient currently on aspirin and Coreg, beta dianna along with Vasotec for her essential hypertension, and statin. Cardiology, Dr. Bang has cleared the patient for discharge to home today. 2. Essential hypertension, likely chronic improved on Vasotec 3. DVT prophylaxis- SCD Discharge Planning Discharge patient to home Condition on discharge: Improved Heart healthy Diet as tolerated Ad Jennie activity Rx written: Aspirin 325 mg by mouth daily Coreg 6.25 mg by mouth twice a day Vasotec 10 mg by mouth BID Zocor 20 mg by mouth daily at bedtime Follow-up with primary care physician Follow-up with Dr. Merritt sanchez Physician Certification 2 Midnight Certification Type: Admission for Inpatient Services Order for Inpatient Services The services are ordered in accordance with Medicare regulations or non- Medicare payer requirements, as applicable. In the case of services not specified as inpatient-only, they are appropriately provided as inpatient services in accordance with the 2-midnight benchmark. Estimated LOS (days): 2 days is the estimated time the patient will need to remain in the hospital, assuming treatment plan goals are met and no additional complications. Post-Hospital Plan: Home Notes: Patient admitted for non-ST elevation myocardial infarction with cardiac catheterization performed. Problem Qualifiers (1) Chest pain: Qualified Codes: R07.9 - Chest pain, unspecified Mary Carmen Clemens MD Jun 12, 2017 15:51
[2017-06-12] MEDS ORDERED: ENALAPRIL MALEATE 10 MG TAB PO SCH ×2 (21:00)
== END 2017-06-12 15:30 | disposition home or self-care (01) ==
LOC: PHED 16:58 → PHEDA 18:51 → HCPC 06-11 01:20
PROVIDERS: ADMIT Family Medicine; ATTEND Family Medicine
DX: I21.4 Non-ST elevation (NSTEMI) myocardial infarction (principal); I25.10 Atherosclerotic heart disease of native coronary artery without angina pectoris; I10 Essential (primary) hypertension; E78.5 Hyperlipidemia, unspecified; C18.9 Malignant neoplasm of colon, unspecified; E03.9 Hypothyroidism, unspecified; E87.6 Hypokalemia; F41.9 Anxiety disorder, unspecified; K44.9 Diaphragmatic hernia without obstruction or gangrene; Z79.82 Long term (current) use of aspirin; Z87.891 Personal history of nicotine dependence
CPT/HCPCS: 70450; 71010; 71275; 74174; 80048; 80061; 82550; 82552; 83735; 84443; 84484; 85025; 85610; 85730; 93005; 93458; 96361; 96365; 96366; 96368; 96374; 96375; 96376; 99285; C1769; C1893; G0378; J1644; J2060; J2250; J3010; J7030; Q0163; Q9967